=== PATIENT | male | born 1975 | race Caucasian/White ===

== ENCOUNTER 2017-07-18 22:18 | Inpatient (IN) | payer OTHER ==
[~2017-07-18] VITALS: Ht 170.2 cm; Wt 113.1 kg
[2017-07-18] MEDS ORDERED: HEPARIN 1000 UNITS/ML 10 ML INJ IV STA (22:22)
[2017-07-18] MEDS ORDERED: SOD CHLORIDE 0.9% 1,000 ML IV STA (22:22)
[2017-07-18] MEDS ORDERED: ASPIRIN 300 MG SUPP PR STA (22:22)
[2017-07-18] MEDS ORDERED: LORAZEPAM 2 MG INJ ONE (22:23)
[2017-07-18] MEDS ORDERED: ASPIRIN 300 MG SUPP PR ONE (22:23)
[2017-07-18] MEDS ORDERED: HEPARIN 5,000 UNIT/0.5 ML VIAL ONE (22:29)
[2017-07-18] MEDS ORDERED: PROPOFOL 20 ML ONE (22:29)
[2017-07-18] MEDS ORDERED: PROPOFOL 100 ML IV ONE (22:30)
[2017-07-18] MEDS ORDERED: LORAZEPAM 2 MG INJ IV ONE (22:30)
[2017-07-18] MEDS ORDERED: PROPOFOL 100 ML ONE (22:30)
[2017-07-18 22:38] LABS: ABNORMAL IP MESSAGE 1; HEMATOCRIT 47.8 % (42.0-52.0); HEMOGLOBIN 15.8 g/dl (14.0-18.0); MEAN CORPUSCULAR HEMOGLOBIN 30.5 pg (29.0-33.0); MEAN CORPUSCULAR HGB CONC 33.1 g/dl (32.0-37.0); MEAN CORPUSCULAR VOLUME 92.3 fl (82.0-101.0); MEAN PLATELET VOLUME 10.4 fl (7.4-10.4); PLATELET COUNT 293 10^3/UL (140-415); POSITIVE DIFF @See below; RED BLOOD COUNT 5.18 10^6/ul (4.70-6.10); RED CELL DISTRIBUTION WIDTH 12.6 % (11.5-14.5); WHITE BLOOD COUNT 11.9 10^3/ul (4.8-10.8)
[2017-07-18] MEDS ORDERED: LIDOCAINE 1% (MDV) 20 ML INJ ONE (22:52)
[2017-07-18] MEDS ORDERED: BIVALIRUDIN 250MG /NS 50 ML 50 ML IVPB ONE (22:52)
[2017-07-18] MEDS ORDERED: HEPARIN 1000 UNITS/ML 10 ML INJ ONE (22:52)
[2017-07-18] MEDS ORDERED: MIDAZOLAM 1 MG/ML 2 ML INJ ONE (22:53)
[2017-07-18] MEDS ORDERED: NITROGLYCERIN (IC) 100 MCG/ML INJ ONE (22:53)
[2017-07-18] MEDS ORDERED: VERAPAMIL 5 MG INJ ONE (22:53)
[2017-07-18] MEDS ORDERED: IODIXANOL LOCM 100 ML BTL ONE (22:53)
[2017-07-18] MEDS ORDERED: FENTAnyl 50 MCG/ML VIAL ONE (22:53)
[2017-07-18] MEDS ORDERED: IOHEXOL 350MG/ML 50 ML BTL ONE (22:53)
[2017-07-18 22:55] LABS: ALBUMIN 4.4 g/dl (3.3-4.9); ALBUMIN/GLOBULIN RATIO 1.51; BILIRUBIN,INDIRECT 0.1 mg/dl (0-1.1); BILIRUBIN,TOTAL 0.1 mg/dl (0.2-1.3); CALCIUM 8.5 mg/dl (8.4-10.2); CREATININE 1.26 mg/dl (0.61-1.24); POTASSIUM 3.1 mmol/L (3.5-5.1); TOTAL PROTEIN 7.3 g/dl (6.1-8.1)
[2017-07-18 23:06] LABS: TROPONIN-I 0.066 ng/ml (0.00-0.12)
--- NOTE | 2017-07-18 23:07 | CONS ---
Date/Time of Note Date/Time of Note DATE: 07/18/17 TIME: 23:04 Assessment/Plan Assessment/Plan Chief Complaint/Hosp Course 42 yo with witnessed vf arrest now with st elevations of lateral leads and reciprocal changes Problems: Additional Assessment/Plan STEMI lateral wall VF arrest due to stemi tobacco abuse hypertension Plan: Cath and possible PCI. Vent management Echo in am. Further orders post PCI D/w with geoint analyst. Consultation Date/Type/Reason Admit Date/Time 07/18/17 Date of Consultation: Jul 18, 2017 Reason for Consultation stemi Referring Provider: GUCCI CLEARY MD Hx of Present Illness 42 yo smoker with htn and prediabetes on no meds presents w 30 min chest pain, followed by sudden collapse. CPR started immediately, paramedics arrived about 10 min later, presenting rhythm VF, shocked x 3, received 300 iv amio. Pt intubated but responded to simple commands upon arrival prior to sedation. Subjective hx not possible: pt non-verbal Past Medical History Medical History: hypertension Social History Smoking Status: Current every day smoker Exam/Review of Systems Vital Signs Vitals Vital Signs Date Time Temp Pulse Resp B/P Pulse Ox O2 Delivery O2 Flow Rate FiO2 07/18/17 22:40 109 17 130/83 100 Mechanical Ventilator 07/18/17 22:30 100 Exam Constitutional: non-verbal (intubated) Psych: No anxiety Head: atraumatic, normocephalic ENMT: intubated Neck: No jvd Respiratory: clear to auscultation Cardiovascular: nl pulses, regular rate and rhythm, No murmurs/extra sounds Gastrointestinal: soft Musculoskeletal: nl extremities to inspection Results Result Diagram: 07/18/17223207/18/172232 Results 24 hrs Laboratory Tests Test 07/18/17 22:33 White Blood Count 11.9 H Red Blood Count 5.18 Hemoglobin 15.8 Hematocrit 47.8 Mean Corpuscular Volume 92.3 Mean Corpuscular Hemoglobin 30.5 Mean Corpuscular Hemoglobin Concent 33.1 Red Cell Distribution Width 12.6 Platelet Count 293 Mean Platelet Volume 10.4 Neutrophils % Lymphocytes % Monocytes % Eosinophils % Basophils % Nucleated Red Blood Cells % 0.0 Neutrophils # Lymphocytes # Monocytes # Eosinophils # Basophils # Nucleated Red Blood Cells # Sodium Level 143 Potassium Level 3.1 L Chloride Level 105 Carbon Dioxide Level 14 L Anion Gap 27 H Blood Urea Nitrogen 16 Creatinine 1.26 H Glucose Level 263 H Calcium Level 8.5 Total Bilirubin 0.1 L Direct Bilirubin 0.00 Indirect Bilirubin 0.1 Aspartate Amino Transf (AST/SGOT) 326 H Alanine Aminotransferase (ALT/SGPT) 473 H Alkaline Phosphatase 59 Troponin I Pending B-Type Natriuretic Peptide Pending Total Protein 7.3 Albumin 4.4 Globulin 2.90 Albumin/Globulin Ratio 1.51 Lipase [address] [place] Jul 18, 2017 23:07
[2017-07-18 23:09] LABS: INR 0.99; PROTIME 13.1 Sec (12.2-14.2)
--- NOTE | 2017-07-18 23:18 | ERD ---
ER Documentation Chief Complaint Chief Complaint sudden collaspe w/ cardiac arrest- witnessed, ROSC approx 15min w/ EMS HPI 42-year-old man brought in by EMS status post cardiac arrest with return of spontaneous circulation. He was at a banquet turner when his saw him collapse while sitting in a chair, he stopped breathing, and 911 was called immediately. Patient had told his 30 minutes earlier he was suffering from unusual left chest discomfort, and his suggested she call 911 for chest discomfort but he refused. states he had been dancing for most of the night prior to collapsing. Upon EMS arrival chest compressions were immediately started, patient had agonal breaths and was pulseless and initial rhythm was ventricular fibrillation. They administered 3 rounds of electrical defibrillation and also gave him 1 mg of epinephrine, with the third defibrillation attempt he regained spontaneous circulation and pulses and then they administered amiodarone IV 1. Patient was intubated at the scene and when when he regained pulses he was transported here immediately. Patient has a history of hypertension and prediabetes. Patient smokes. ROS All systems reviewed and are negative except as per history of present illness. Allergies Allergies: Coded Allergies: No Known Allergy (Unverified , 07/18/17) PMhx/Soc Obesity, hypertension, prediabetes Smoking Status: Current every day smoker FmHx Family History: No diabetes Physical Exam Vitals Vital Signs Date Time Temp Pulse Resp B/P Pulse Ox O2 Delivery O2 Flow Rate FiO2 07/18/17 22:40 109 17 130/83 100 Mechanical Ventilator 07/18/17 22:35 111 30 161/94 100 Mechanical Ventilator 07/18/17 22:30 109 31 95 100 07/18/17 22:25 117 22 140/96 99 07/18/17 22:20 119 27 140/96 100 Mechanical Ventilator Physical Exam GENERAL: Well-developed, well-nourished, well-hydrated, intubated, nonverbal, eyes closed, afebrile HEENT: Moist mucous membranes, pink conjunctiva, no cervical spine tenderness or step-off deformities, intubated NEURO: Pulses equal round reactive to light, he is responding to simple questioning, moving extremities CARDIAC: Tachycardic and regular no murmurs rubs or gallops LUNGS: Clear bilaterally no wheezing crackles or stridor ABDOMEN: Soft nontender, no guarding, no rigidity, no rebound, no psoas sign no obturator sign. SKIN: Warm and dry to touch, no abrasions, contusions, or hematomas, no lacerations, no ecchymosis, no target lesions, and without ulcers EXTREMITIES: No clubbing cyanosis or edema, calves are bilaterally symmetrical, no Homans sign, no popliteal cord sign. Distal pulses equal and bilateral PSYCH: Unable to assess Result Diagram: 07/18/17 2233 07/19/17 0142 Results 24 hrs Laboratory Tests Test 07/18/17 22:33 White Blood Count 11.910^3/ul Red Blood Count 5.1810^6/ul Hemoglobin 15.8g/dl Hematocrit 47.8% Mean Corpuscular Volume 92.3fl Mean Corpuscular Hemoglobin 30.5pg Mean Corpuscular Hemoglobin Concent 33.1g/dl Red Cell Distribution Width 12.6% Platelet Count 25926^3/UL Mean Platelet Volume 10.4fl Neutrophils % % Lymphocytes % % Monocytes % % Eosinophils % % Basophils % % Nucleated Red Blood Cells % 0.0/100WBC Neutrophils # 10^3/ul Lymphocytes # 10^3/ul Monocytes # 10^3/ul Eosinophils # 10^3/ul Basophils # 10^3/ul Nucleated Red Blood Cells # 10^3/ul Prothrombin Time 13.1Sec Prothrombin Time Ratio 1.0 INR International Normalized Ratio 0.99 Sodium Level 143mmol/L Potassium Level 3.1mmol/L Chloride Level 105mmol/L Carbon Dioxide Level 14mmol/L Anion Gap 27 Blood Urea Nitrogen 16mg/dl Creatinine 1.26mg/dl Glucose Level 263mg/dl Calcium Level 8.5mg/dl Total Bilirubin 0.1mg/dl Direct Bilirubin 0.00mg/dl Indirect Bilirubin 0.1mg/dl Aspartate Amino Transf (AST/SGOT) 326IU/L Alanine Aminotransferase (ALT/SGPT) 473IU/L Alkaline Phosphatase 59IU/L Troponin I 0.066ng/ml B-Type Natriuretic Peptide 35PG/ML Total Protein 7.3g/dl Albumin 4.4g/dl Globulin 2.90g/dl Albumin/Globulin Ratio 1.51 Lipase 265U/L Current Medications Medications (Trade) Dose Ordered Sig/Clarke Route PRN Reason Start Time Stop Time Status Last Admin Dose Admin Sodium Chloride (NS) 1,000 ml @ 1,000 mls/hr Q1H STAT IV 07/18/17 22:22 07/18/17 23:21 DC 07/18/17 22:41 Aspirin (Aspirin) 300 mg ONCE STAT [place] 07/18/17 22:22 07/18/17 22:28 DC 07/18/17 22:37 Heparin Sodium (Porcine) (Heparin (1000 Units/ml)) 5,000 unit ONCE STAT IV 07/18/17 22:22 07/18/17 22:28 DC 07/18/17 22:33 Lorazepam 2 mg 2 mg ONCE ONCE IV 07/18/17 22:30 07/18/17 22:31 DC 07/18/17 22:37 Propofol (Diprivan) 100 ml @ 0 mls/hr TITRATE ONCE IV 07/18/17 22:30 07/18/17 22:31 DC 07/18/17 22:37 Heparin Sodium (Porcine) 5000 unit 5,000 unit STK-MED ONCE .ROUTE 07/18/17 22:29 07/18/17 22:30 DC Propofol 20 ml @ ud STK-MED ONCE .ROUTE 07/18/17 22:29 07/18/17 22:30 DC Propofol (Diprivan) 100 ml @ ud STK-MED ONCE .ROUTE 07/18/17 22:30 07/18/17 22:31 DC Heparin Sodium (Porcine) (Heparin (1000 Units/ml)) 10,000 unit STK-MED ONCE .ROUTE 07/18/17 22:52 07/18/17 22:53 DC Lidocaine 20 ml 20 ml STK-MED ONCE .ROUTE 07/18/17 22:52 07/18/17 22:53 DC Bivalirudin (Angiomax) 50 ml @ ud STK-MED ONCE IVPB 07/18/17 22:52 07/18/17 22:53 DC Iohexol (Omnipaque 350mg/ ml) 50 ml STK-MED ONCE .ROUTE 07/18/17 22:53 07/18/17 22:54 DC Iodixanol 100 ml 100 ml STK-MED ONCE .ROUTE 07/18/17 22:53 07/18/17 22:54 DC Heparin Sodium/ Sodium Chloride (Heparin 1000 Units/NS (A-Line)) 1,500 ml @ ud STK-MED ONCE .ROUTE 07/18/17 22:53 07/18/17 22:54 DC Midazolam HCl (Versed) 2 mg STK-MED ONCE .ROUTE 07/18/17 22:53 07/18/17 22:54 DC Fentanyl (Sublimaze) 100 mcg STK-MED ONCE .ROUTE 07/18/17 22:53 07/18/17 22:54 DC Verapamil HCl (Verapamil) 5 mg STK-MED ONCE .ROUTE 07/18/17 22:53 07/18/17 22:54 DC Nitroglycerin (Nitroglycerin (Intracoronary)) 1,000 mcg STK-MED ONCE .ROUTE 07/18/17 22:53 07/18/17 22:54 DC Procedures/MDM IV line was established patient was placed on property assessment monitor rhythm strip revealed a sinus tachycardia at 120 bpm with upright P and T waves. Patient was afebrile I reviewed EMS EKG reveals large ST elevations in anterolateral leads concerning for acute VA. Code STEMI was called. I spoke immediately with Dr. Hernandez salesforce consultant consumer marketing specialist regarding the patient 's EKG findings, and she agreed to immediate PCI. Family members were at the bedside were notified, and agreed to this plan. EKG performed here in the ED, read by me reveals a sinus tachycardia at 120 bpm , normal axis, narrow QRS complex with 0.[address] elevations in precordial leads. One view chest x-ray performed, read by me the ET tube is in place above the pratibha, there is cardiomegaly, atelectatic changes bilaterally, no acute infiltrates, no pneumothorax. CBC was unremarkable, electrolytes revealed hypokalemia 3.1, liver function tests reveal transaminitis, troponin low at 0.07 and with his overall presentation and EKG findings I suspect he has an acute ST elevation myocardial infarction. Critical Care: Time: 30 minutes, this was time separate from other billable procedures. Treatments/Evaluations: Close monitoring and treatment of unstable vital signs, cardiorespiratory, and neurologic status, while maintaining tight balance of fluid, respiratory, and cardiac interventions. I administered 1 L normal saline intravenously, aspirin 300 mg per rectum, and heparin bolus 5000 units IV 1 for cardioprotective measures. Patient was also given lorazepam 2 mg IV 1 to help keep him sedated followed by propofol drip. Patient admitted to the intensive care unit. Departure Diagnosis: Primary Impression: ST elevation myocardial infarction (STEMI) Involved coronary artery: unspecified coronary artery Qualified Code: I21.3 - ST elevation myocardial infarction (STEMI), unspecified artery Additional Impressions: Cardiac arrest Signs of return of spontaneous circulation Condition: Critical GUCCI CLEARY MD Jul 18, 2017 23:18
--- NOTE | 2017-07-18 23:25 | RADRPT ---
PROCEDURE: XR Chest. CLINICAL INDICATION: Chest pain TECHNIQUE: Single frontal view of the chest was obtained COMPARISON: None FINDINGS: The tip of the endotracheal tube is approximately 4 cm above the pratibha. There is hypoinflation of t he lungs. This along with portable AP technique accentuates the size of the cardiac silhouette. Ther e is appearance of minimal enlargement of the cardiac silhouette. There is appearance of mild diffus e increased interstitial lung densities which could represent interstitial infiltrates or possibly e corrine. There is no pleural effusion or pneumothorax seen. ECG leads projected over the chest. IMPRESSION: Hypoinflation lungs. There is appearance of minimal enlargement of the cardiac silhouette. There is appearance of mild diffuse increased interstitial lung densities which could represent interstitial infiltrates or possibly edema. RPTAT: HJES .Ronn Araujo MD, MD Date Time Electronically viewed and signed by .Ronn Araujo MD, MD on 07/18/2017 23:25 .S/
[2017-07-19] VITALS (82 sets, daily range): BP systolic 82–134; BP diastolic 55–88; PULSE 77–180; RESP 0–38; Ht 170.2 cm; Wt 113.1 kg
[2017-07-19] MEDS ORDERED: ONDANSETRON 4 MG INJ IV PRN
[2017-07-19] MEDS ORDERED: ACETAMINOPHEN 650MG/20.3ML CUP PO PRN
[2017-07-19] MEDS ORDERED: NITROGLYCERIN (SL) 0.4 MG TAB SL PRN
[2017-07-19] MEDS ORDERED: IPRATROPIUM (HFA) 12.9 GM INHALER INH PRN
[2017-07-19] MEDS ORDERED: ALBUTEROL HFA 8 GM INHALER INH PRN
[2017-07-19] MEDS ORDERED: EPTIFIBATIDE 100 ML IV ONE (00:24)
[2017-07-19] MEDS ORDERED: TICAGRELOR 90 MG TABLET ONE ×2 (00:24→00:37)
[2017-07-19] MEDS ORDERED: EPTIFIBATIDE 20 ML ONE (00:24)
[2017-07-19] MEDS ORDERED: SOD CHLORIDE 0.9% 1,000 ML IV SCH (00:27)
[2017-07-19] MEDS ORDERED: EPTIFIBATIDE 100 ML IV SCH (00:27)
[2017-07-19] MEDS: METOPROLOL 25 MG TAB PO SCH ×3 (00:30→20:50)
--- NOTE | 2017-07-19 00:49 | OPR ---
Date/Time of Note Date/Time of Note DATE: 07/19/17 TIME: 00:36 Operative Report Procedure Date: Jul 19, 2017 Preoperative Diagnosis STEMI lateral wall Postoperative Diagnosis STEMI lateral wall, completely occluded LCX Operation/Procedure Performed coronary angiogram, left heart catheterization, percutaneous coronary intervention of left circumflex Surgeon see signature line Watch Crystal Molder Brad BURK Anesthesia Type: general (intubated, on propofol) Estimated Blood Loss: 100 - 150 ml's Transfusion none Specimen none Grafts/Implants Synergy 2.5x24 mm stent to mid LCX Complications none Pt Condition Post Procedure: guarded Disposition: other (ICU) Indications 42 yo who complained of 30 min of chest pain and then witnessed to have a cardiac arrest, resusciated from VF, EKG with ST elevations in lateral leads. Procedure Description Informed consent obtained from . Patient brought emergently to the filling station laborer , initially access obtained from the right radial artery, but catheters would not advance likely due to anatomy of his aorta and short ascending thoracic aorta. Therefore access gained in right common femoral artery, using fluoro for landmarks. Lidocaine used for anesthesia locally. Using modified seldinger technique, access gained in right CHORAL DIRECTOR. JR4 diagnostic and FL 4.5 guide catheter advanced over wire to asc thoracic aorta and engaged the RCA and LM respectively, contrast injected and images obtained in multiple views under cineangiography. Occluded LCX found to be the culprit, and procedure converted to a PCI. Heparin given and ACT found to be appropriately elevated. During the case, Integrilin was added due to burden of thrombus in the LCX. A Luge wire crossed the lesion, a 2.0x12 and 2.25x12 balloon inflated within the lesion. Good flow restored. Images performed in multiple projections including a wire out shot confirming that the stent was well opposed and no dissection present. Next a pigtail catheter advanced to the ascending thoracic aorta and crossed the aortic valve. Pressures measured and an LV gram was performed. Pigtail removed over wire. Angiography performed through the side arm of the femoral sheath demonstrating that it was positioned close to the inferior epigastric artery, and the sheath was sutured in place to be removed once ACT has dropped. Of note, patient did become hypotensive during the procedure and briefly received dopamine. At the end of the procedure, patient was normotensive. Findings: LM nl LAD mild luminal irregularities LCX 100% mid completely occluded. Lesion length 16 mm. ZOILA 0 before, ZOILA 3 after, not a type C lesion. LCX not a large vessel, but there is an extensive OM vessel after the lesion. RCA 60% proximal, 40% mid. Dominant vessel LVEF 60%, no obvious wall motion abnormalities on LV gram, LVEDP 17 [place] Jul 19, 2017 00:49
[2017-07-19] MEDS: PROPOFOL 100 ML IV SCH ×7 (01:21→19:52)
[2017-07-19 02:42] LABS: AADO2 Arterial 497.2 mmHg (7.0-24.0); Allen Test ACCEPTAB; Arterial Base Excess -11.2 mmol/L (-3.0-3); Arterial COHb 0.3 % (0.0-3.0); Arterial Fraction of Oxyhgb 98.1 % (93.0-99.0); Arterial HCO3 15.2 mmol/L (22.0-26.0); Arterial MetHb 0.2 % (0.0-1.5); Arterial Total Hemglobin 14.9 g/dl (12.0-18.0); Blood Gas Low PEEP Setting 0 cmH2O; MODE VENT - AC
[2017-07-19] MEDS: LORAZEPAM 2 MG INJ IV PRN ×3 (03:58→14:39)
[2017-07-19 05:01] LABS: AADO2 Arterial 468.1 mmHg (7.0-24.0); Arterial Base Excess -8.6 mmol/L (-3.0-3); Arterial COHb 0.3 % (0.0-3.0); Arterial Fraction of Oxyhgb 92.4 % (93.0-99.0); Arterial HCO3 16.4 mmol/L (22.0-26.0); Arterial MetHb 0.2 % (0.0-1.5); Arterial Total Hemglobin 14.7 g/dl (12.0-18.0); Blood Gas Low PEEP Setting 0 cmH2O; MODE VENT - AC
[2017-07-19] MEDS: PANTOPRAZOLE 40 MG INJ IV SCH ×2 (05:06→23:22)
[2017-07-19 05:37] LABS: BASOPHILS % 0.1 % (0.0-2.0); EOSINOPHILS % 0.1 % (0.0-7.0); HEMATOCRIT 40.9 % (42.0-52.0); HEMOGLOBIN 13.9 g/dl (14.0-18.0); LYMPHOCYTES # 1.2 10^3/ul (0.8-2.9); MEAN CORPUSCULAR HEMOGLOBIN 30.8 pg (29.0-33.0); MEAN CORPUSCULAR VOLUME 90.5 fl (82.0-101.0); MEAN PLATELET VOLUME 10.6 fl (7.4-10.4); MONOCYTE # 0.7 10^3/ul (0.3-0.9); NEUTROPHIL # 11.1 10^3/ul (1.6-7.5); NEUTROPHILS % 85.3 % (39.0-77.0); PLATELET COUNT 214 10^3/UL (140-415); RED BLOOD COUNT 4.52 10^6/ul (4.70-6.10); RED CELL DISTRIBUTION WIDTH 12.7 % (11.5-14.5)
[2017-07-19 05:53] LABS: ALBUMIN 3.1 g/dl (3.3-4.9); ALBUMIN/GLOBULIN RATIO 1.06; BILIRUBIN,INDIRECT 0.2 mg/dl (0-1.1); BILIRUBIN,TOTAL 0.2 mg/dl (0.2-1.3); CALCIUM 8.1 mg/dl (8.4-10.2); CREATININE 1.03 mg/dl (0.61-1.24); MAGNESIUM 1.8 mg/dl (1.7-2.5); POTASSIUM 4.2 mmol/L (3.5-5.1)
--- NOTE | 2017-07-19 06:07 | HP ---
Date/Time of Note Date/Time of Note DATE: 07/19/17 TIME: 05:57 Assessment/Plan VTE Prophylaxis VTE Prophylaxis Intervention: heparin Lines/Catheters IV Catheter Type (from Nrs): Peripheral IV Urinary Cath still in place: Yes Reason Cath still needed: terminal illness/intractable pain Assessment/Plan Assessment/Plan 1. Status post V-fib cardiac arrest, secondary to STEMI: with ROSC s/p shock 3 and Amiodarone. -Patient is status post PCI with stent to the left circumflex -Continue ICU monitoring -Continue current cardiac medications -Obtain 2D echo in a.m. -Follow-up cardiology recs -Pulmonary to manage vent 2. Hypoxic vent dependent respiratory failure -Continue vent support. Pulmonary to manage -Check ABG in a.m. 3. Elevated transaminases, likely secondary to shock liver -Check abdominal ultrasound -Blood pressure support as needed -Check a.m. lab -Consider GI/hepatology 4. Presumed acute kidney injury -Continue IV fluid and pressor support for now 5. Metabolic acidosis, secondary to #1 -Continue IV fluids, IV antibiotics, vent support, follow-up kidney function closely HPI/ROS Admit Date/Time Admit Date/Time 07/18/17 Hx of Present Illness This is a 42-year-old male with a history of hypertension, diabetes and smoking history who was brought to the ER after having had a cardiac arrest. Patient was in V. fib cardiac arrest and was shocked 3. When he arrived to the ER, a code STEMI was activated and patient was emergently taken to the Wafer Cutter and is now status post PCI with stents to the left circumflex. Reportedly, patient was following simple commands in the ER. Currently he is intubated and appears somehow agitated. ROS Psychological: No anxiety PMH/Family/Social Past Medical History Medical History: hypertension Social History Smoking Status: Current every day smoker Exam/Review of Systems Vital Signs Vitals Vital Signs Date Time Temp Pulse Resp B/P Pulse Ox O2 Delivery O2 Flow Rate FiO2 07/19/17 03:09 80 07/19/17 02:45 85 0 91/61 100 Mechanical Ventilator 07/19/17 01:30 97.9 Intake and Output 07/18/17 07/18/17 07/19/17 14:59 22:59 06:59 Intake Total 324.05 ml Output Total 1057 ml Balance -732.95 ml Exam Constitutional: other (Intubated and sedated, looks uncomfortable in event) Head: atraumatic, normocephalic Respiratory: diminished breath sounds Cardiovascular: nl pulses, regular rate and rhythm Gastrointestinal: soft Extremities: normal pulses Labs Result Diagram: 07/19/1742907/19/17 043 Medications Medications Current Medications Ondansetron HCl (Zofran Inj) 4 mg Q6H PRN IV NAUSEA AND/OR VOMITING; Start at 00:00 Nitroglycerin (Nitroglycerin (Sl Tab) 0.4 Mg) 1 tab Q5M PRN SL CHEST PAIN; Start 07/19/17 at 00:00 Acetaminophen (Tylenol Liquid) 650 mg Q6H PRN PO PAIN LEVEL 1-3 OR FEVER; Start 07/19/17 at 00:00 Morphine Sulfate (morphine) 2 mg Q4H PRN IV PAIN LEVEL 7-10; Start 07/19/17 at 00:00 Lorazepam (Ativan) 1 mg Q2H PRN IV ANXIETY Last administered on 07/19/17 03: 58; Admin Dose 1 MG; Start 07/19/17 at 00:00 Pantoprazole 40 mg 40 mg DAILY@06 IV Last administered on 07/19/17 05:06; Admin Dose 40 MG; Start 07/19/17 at 06:00 Levofloxacin/ Dextrose (Levaquin 500mg/ D5W 100 ml (Pmx)) 100 ml @ 100 mls/hr DAILY IVPB ; Start 07/19/17 at 09:00 Aspirin (Halfprin) 81 mg DAILY PO ; Start 07/19/17 at 09:00 Ticagrelor 90 mg 90 mg BID PO ; Start 07/19/17 at 09:00 Eptifibatide (Integrilin) 100 ml @ 6.6 mls/hr [id number] IV Last administered on 07/19/17 01:20; Admin Dose 6.6 MLS/HR; Start 07/19/17 at 00:27; Stop at 12:26 Metoprolol Tartrate (Lopressor) 25 mg BID PO ; Start 07/19/17 at 00:30 Atorvastatin Calcium 80 mg 80 mg DAILY@21 PO ; Start 07/19/17 at 21:00 Sodium Chloride (NS) 1,000 ml @ 75 mls/hr [id number] IV Last administered on t 01:37; Admin Dose 75 MLS/HR; Start 07/19/17 at 00:27; Stop 07/19/17 at 13:46 SAVANAH HOANG MD Jul 19, 2017 06:07
[2017-07-19 06:23] LABS: THYROID STIMULATING HORMONE 0.502 MIU/L (0.465-4.680)
[2017-07-19 06:56] LABS: CHOL/HDL RATIO 8.3 RATIO
[2017-07-19] MEDS ORDERED: DOPamine-D5W 1.6 MG/ML 250 ML ONE (07:00)
[2017-07-19 07:16] LABS: TROPONIN-I 72.9 ng/ml (0.00-0.12)
[2017-07-19 08:05] LABS: BARBITURATES Negative (NEGATIVE); BENZODIAZEPINES Negative (NEGATIVE); CANNABINOIDS Negative (NEGATIVE); COCAINE Negative (NEGATIVE); OPIATES Negative (NEGATIVE)
[2017-07-19] MEDS: LEVOFLOXACIN 500MG/D5W (PMX) 100 ML IVPB SCH (08:22)
[2017-07-19] MEDS: ASPIRIN (EC) 81 MG TAB PO SCH (08:23)
[2017-07-19] MEDS: TICAGRELOR 90 MG TABLET PO SCH ×2 (08:24→20:54)
[2017-07-19] MEDS ORDERED: ASPIRIN (EC) 81 MG TAB PO SCH (09:00)
--- NOTE | 2017-07-19 09:18 | RADRPT ---
PROCEDURE: US Abdomen. CLINICAL INDICATION: elevated LFTs TECHNIQUE: Multiple real-time images were acquired of the patient's abdomen and retroperitoneum ut ilizing a high resolution transducer. COMPARISON: None FINDINGS: The liver demonstrates increased echogenicity. The liver is normal in size and no focal solid lesio ns are seen. The portal vein is patent with normal direction of flow. No intrahepatic biliary dila tation is seen. The liver measures 16.3 cm in length. No gallstones are identified within the gallbladder. There is no pericholecystic fluid or gallbladd er wall thickening. The common bile duct measures 5 mm in maximal dimension. The visualized portions of the pancreas are unremarkable. The tail of the pancreas is not seen. Th e pancreas was not well seen due to overlying bowel gas. The spleen is normal in size. The spleen measures 11.5 cm in length. No free fluid is identified. The kidneys are normal in size, and demonstrate normal echogenicity and cortical thickness. The rig ht kidney measures 11.4 cm. The left kidney measures 12.4 cm. There is no evidence of hydronephros is. There are no kidney stones. The proximal aorta measures 2.3 cm in transverse dimension. IMPRESSION: Mild fatty infiltration of the liver. RPTAT: AA .Hiro Campbell MD, Date Time Electronically viewed and signed by .Hiro Campbell MD, MD on 07/19/2017 09:18 .S/
[2017-07-19] MEDS ORDERED: LEVALBUTEROL (HFA) 15 GM INHALER INH PRN (09:30)
[2017-07-19 09:36] LABS: ADD UMIC YES; UR ASCORBIC ACID NEGATIVE (NEGATIVE); UR BACTERIA FEW /HPF (NONE SEEN); UR BILIRUBIN (Dip) NEGATIVE (NEGATIVE); UR BLOOD (Dip) 2+ mg/dL (NEGATIVE); UR CLARITY CLEAR (CLEAR); UR COLOR YELLOW (YELLOW); UR GLUCOSE (Dip) NEGATIVE (NEGATIVE); UR KETONES (Dip) NEGATIVE (NEGATIVE); UR LEUKOCYTE ESTERASE (Dip) NEGATIVE Leu/ul (NEGATIVE); UR MUCUS MANY /HPF (NONE SEEN); UR NITRITE (Dip) NEGATIVE (NEGATIVE); UR RBC 13 /HPF (0-5); UR SPECIFIC GRAVITY (Dip) > 1.060 (1.003-1.030); UR TOTAL PROTEIN (Dip) 2+ mg/dl (NEGATIVE); UR UROBILINOGEN (Dip) NEGATIVE (NEGATIVE)
[2017-07-19 09:41] LABS: AADO2 Arterial 377.5 mmHg (7.0-24.0); Arterial Base Excess -8.2 mmol/L (-3.0-3); Arterial COHb 0.3 % (0.0-3.0); Arterial Fraction of Oxyhgb 98.1 % (93.0-99.0); Arterial HCO3 16.6 mmol/L (22.0-26.0); Arterial MetHb 0.3 % (0.0-1.5); Arterial Total Hemglobin 13.7 g/dl (12.0-18.0); MODE VENT - AC
--- NOTE | 2017-07-19 09:48 | PN ---
Date/Time of Note Date/Time of Note DATE: 07/19/17 TIME: 09:44 Assessment/Plan VTE Prophylaxis VTE Prophylaxis Intervention: SCD's Lines/Catheters IV Catheter Type (from Nrs): Peripheral IV Urinary Cath still in place: Yes Reason Cath still needed: other (indicate) (intubated) Assessment/Plan Chief Complaint/Hosp Course 42 yo with witnessed vf arrest now with st elevation mi of lateral wall, post pci and stent to lcx. Problems: Assessment/Plan VF arrest due to stemi lateral wall STEMI lateral wall CAD vent dependent resp failure Recc: On asa and brilinta, metoprolol, atorvastatin, continue integrillin drip Remove femoral sheath today Echo pending Stop fluids now, lasix per pulmonary Hopeful extubation soon Subjective 24 Hr Interval Summary Free Text/Dictation Pt still requiring 80% fio2. Troponin elevated as expected. Short runs nsvt overnight. Subjective hx not possible: pt non-verbal Exam/Review of Systems Vital Signs Vitals Vital Signs Date Time Temp Pulse Resp B/P Pulse Ox O2 Delivery O2 Flow Rate FiO2 07/19/17 08:00 88 07/19/17 06:01 27 100 100 07/19/17 06:00 94/73 Mechanical Ventilator 07/19/17 04:00 99.1 Intake and Output 07/18/17 07/18/17 07/19/17 15:00 23:00 07:00 Intake Total 667.85 ml Output Total 1163 ml Balance -495.15 ml Exam Constitutional: non-verbal Head: atraumatic, normocephalic ENMT: intubated Neck: No bruits Respiratory: normal air movement, other (few coarse sounds) Cardiovascular: regular rate and rhythm, No murmurs/extra sounds Gastrointestinal: nl liver, spleen, non-tender, soft Musculoskeletal: nl extremities to inspection Extremities: normal pulses (right femoral sheath intact, no hematoma or bruit. Right radial artery site well healed.) Neurological: other (sedated) Skin: nl turgor, No rash or lesions Results Result Diagram: 07/19/1742907/19/17 0430 Results 24 hrs Laboratory Tests Test 07/18/17 22:33 07/19/17 01:41 07/19/17 01:42 07/19/17 02:25 White Blood Count 11.9 H Red Blood Count 5.18 Hemoglobin 15.8 Hematocrit 47.8 Mean Corpuscular Volume 92.3 Mean Corpuscular Hemoglobin 30.5 Mean Corpuscular Hemoglobin Concent 33.1 Red Cell Distribution Width 12.6 Platelet Count 293 Mean Platelet Volume 10.4 Neutrophils % Lymphocytes % Monocytes % Eosinophils % Basophils % Nucleated Red Blood Cells % 0.0 Neutrophils # Lymphocytes # Monocytes # Eosinophils # Basophils # Nucleated Red Blood Cells # Prothrombin Time 13.1 Prothrombin Time Ratio 1.0 INR International Normalized Ratio 0.99 Sodium Level 143 Potassium Level 3.1 L 4.3 Chloride Level 105 Carbon Dioxide Level 14 L Anion Gap 27 H Blood Urea Nitrogen 16 Creatinine 1.26 H Glucose Level 263 H Calcium Level 8.5 Total Bilirubin 0.1 L Direct Bilirubin 0.00 Indirect Bilirubin 0.1 Aspartate Amino Transf (AST/SGOT) 326 H Alanine Aminotransferase (ALT/SGPT) 473 H Alkaline Phosphatase 59 Troponin I 0.066 B-Type Natriuretic Peptide 35 Total Protein 7.3 Albumin 4.4 Globulin 2.90 Albumin/Globulin Ratio 1.51 Lipase 265 Magnesium Level 2.0 Blood Gas Specimen Source Blood arterial Arterial Blood Date Drawn 07/19/2017 2:31:05 AM Arterial Blood pH (Temp corrected) 7.241 *L Arterial Blood pCO2 (Temp correct) 36.3 Arterial Blood pO2 (Temp corrected) 179.5 H Arterial Blood HCO3 15.2 L Arterial Blood Base Excess -11.2 L Arterial Blood Oxygen Saturation 98.6 H Joao Test ACCEPTAB Arterial Blood Gas Puncture Site Right Radial Arterial Blood Carboxyhemoglobin 0.3 Arterial Blood Methemoglobin 0.2 Blood Gas A-a O2 Differential 497.2 H Oxyhemoglobin Percent 98.1 Total Hemoglobin 14.9 Blood Gas Temperature 37.0 Blood Gas Respiration Rate 16.0 Blood Gas Actual Respiration Rate 23 Blood Gas Modality VENT - AC FiO2 100.0 Blood Gas Tidal Volume 500.0 Blood Gas Low PEEP Setting 0 Blood Gas Inspiratory Pressure 21.0 Blood Gas Critical Value Read Back REYNALDO Shrestha REdi Blood Gas Notified Whom TELLO BENITO Blood Gas Notified Time 07/19/2017 2:41:39 AM Test 07/19/17 04:30 07/19/17 05:00 07/19/17 06:00 07/19/17 09:00 White Blood Count 13.0 H Red Blood Count 4.52 L Hemoglobin 13.9 L Hematocrit 40.9 L Mean Corpuscular Volume 90.5 Mean Corpuscular Hemoglobin 30.8 Mean Corpuscular Hemoglobin Concent 34.0 Red Cell Distribution Width 12.7 Platelet Count 214 # Mean Platelet Volume 10.6 H Neutrophils % 85.3 H Lymphocytes % 9.0 L Monocytes % 5.0 Eosinophils % 0.1 Basophils % 0.1 Nucleated Red Blood Cells % 0.0 Neutrophils # 11.1 H Lymphocytes # 1.2 Monocytes # 0.7 Eosinophils # 0.0 Basophils # 0.0 Nucleated Red Blood Cells # 0.0 Sodium Level 144 Potassium Level 4.2 Chloride Level 113 H Carbon Dioxide Level 21 Anion Gap 14 # Blood Urea Nitrogen 19 Creatinine 1.03 Glucose Level 128 # Hemoglobin A1c 5.5 Calcium Level 8.1 L Magnesium Level 1.8 Total Bilirubin 0.2 Direct Bilirubin 0.00 Indirect Bilirubin 0.2 Aspartate Amino Transf (AST/SGOT) 489 H Alanine Aminotransferase (ALT/SGPT) 472 H Alkaline Phosphatase 42 Creatine Kinase 2803 H Creatine Kinase Index 5.5 Creatinine Kinase MB (Mass) 154.00 H Troponin I 72.900 *H Total Protein 6.0 #L Albumin 3.1 #L Globulin 2.90 Albumin/Globulin Ratio 1.06 Triglycerides Level 382 H Cholesterol Level 200 LDL Cholesterol, Calculated 100 HDL Cholesterol 24 L Cholesterol/HDL Ratio 8.3 Thyroid Stimulating Hormone (TSH) 0.502 Blood Gas Specimen Source Blood arterial Blood arterial Arterial Blood Date Drawn 07/19/2017 4:51:04 AM 07/19/2017 9:30:58 AM Arterial Blood pH (Temp corrected) 7.314 L 7.328 L Arterial Blood pCO2 (Temp correct) 33.1 L 32.4 L Arterial Blood pO2 (Temp corrected) 67.6 L 158.9 H Arterial Blood HCO3 16.4 L 16.6 L Arterial Blood Base Excess -8.6 L -8.2 L Arterial Blood Oxygen Saturation 92.9 L 98.7 H Joao Test N/A N/A Arterial Blood Gas Puncture Site A-Line A-Line Arterial Blood Carboxyhemoglobin 0.3 0.3 Arterial Blood Methemoglobin 0.2 0.3 Blood Gas A-a O2 Differential 468.1 H 377.5 H Oxyhemoglobin Percent 92.4 L 98.1 Total Hemoglobin 14.7 13.7 Blood Gas Temperature 37.0 37.0 Blood Gas Respiration Rate 16.0 16.0 Blood Gas Actual Respiration Rate 29 25 Blood Gas Modality VENT - AC VENT - AC FiO2 80.0 80.0 Blood Gas Tidal Volume 500.0 500.0 Blood Gas Low PEEP Setting 0 5.0 Blood Gas Notified Whom Jono SOLIS Blood Gas Notified Time 07/19/2017 5:01:42 AM 07/19/2017 9:41:37 AM Urine Color YELLOW Urine Clarity CLEAR Urine pH 5.0 Urine Specific [place] > 1.060 H Urine Ketones NEGATIVE Urine Nitrite NEGATIVE Urine Bilirubin NEGATIVE Urine Urobilinogen NEGATIVE Urine Leukocyte Esterase NEGATIVE Urine Microscopic RBC 13 H Urine Microscopic WBC 2 Urine Bacteria FEW A Urine Mucus MANY A Urine Hemoglobin 2+ H Urine Glucose NEGATIVE Urine Total Protein 2+ H Urine Opiates Screen Negative Urine Barbiturates Negative Urine Amphetamines Screen Negative Urine Benzodiazepines Screen Negative Urine Cocaine Screen Negative Urine Cannabinoids Negative Medications Medications Current Medications Ondansetron HCl (Zofran Inj) 4 mg Q6H PRN IV NAUSEA AND/OR VOMITING; Start at 00:00 Nitroglycerin (Nitroglycerin (Sl Tab) 0.4 Mg) 1 tab Q5M PRN SL CHEST PAIN; Start 07/19/17 at 00:00 Acetaminophen (Tylenol Liquid) 650 mg Q6H PRN PO PAIN LEVEL 1-3 OR FEVER; Start 07/19/17 at 00:00 Morphine Sulfate (morphine) 2 mg Q4H PRN IV PAIN LEVEL 7-10; Start 07/19/17 at 00:00 Lorazepam (Ativan) 1 mg Q2H PRN IV ANXIETY Last administered on 07/19/17 03: 58; Admin Dose 1 MG; Start 07/19/17 at 00:00 Pantoprazole 40 mg 40 mg DAILY@06 IV Last administered on 07/19/17 05:06; Admin Dose 40 MG; Start 07/19/17 at 06:00 Levofloxacin/ Dextrose (Levaquin 500mg/ D5W 100 ml (Pmx)) 100 ml @ 100 mls/hr DAILY IVPB Last administered on 07/19/17 08:22; Admin Dose 100 MLS/HR; Start 07/19/17 at 09:00 Aspirin (Halfprin) 81 mg DAILY PO Last administered on 07/19/17 08:23; Admin Dose 81 MG; Start 07/19/17 at 09:00 Ticagrelor 90 mg 90 mg BID PO Last administered on 07/19/17 08:24; Admin Dose 90 MG; Start 07/19/17 at 09:00 Eptifibatide (Integrilin) 100 ml @ 6.6 mls/hr [id number] IV Last administered on 07/19/17 01:20; Admin Dose 6.6 MLS/HR; Start 07/19/17 at 00:27; Stop at 12:26 Metoprolol Tartrate (Lopressor) 25 mg BID PO Last administered on 07/19/17 08 :23; Admin Dose 25 MG; Start 07/19/17 at 00:30 Atorvastatin Calcium 80 mg 80 mg DAILY@21 PO ; Start 07/19/17 at 21:00 Sodium Chloride (NS) 1,000 ml @ 75 mls/hr [id number] IV Last administered on 01:37; Admin Dose 75 MLS/HR; Start 07/19/17 at 00:27; Stop 07/19/17 at 13:46 [place] Jul 19, 2017 09:48
[2017-07-19] MEDS: morphine 2 MG INJ IV PRN ×2 (10:58→14:54)
--- NOTE | 2017-07-19 11:40 | CONS ---
DATE OF ADMISSION: 07/18/2017 DATE OF CONSULTATION: TYPE OF CONSULTATION: Pulmonary. REASON FOR CONSULT: Cardiac arrest, respiratory failure. Thank you, Dr. Sorenson, for this consultation. HISTORY OF PRESENT ILLNESS: This is a 42-year-old gentleman, history of positive tobacco use, colla psed at a social function, found to be unresponsive. Paramedics arrived. The patient was in VF rec eived defibrillation and amiodarone with return of circulation, brought here, taken to cardiac pit laborer emergently found to have occluded left circumflex, underwent a percutaneous stent placement with good post-procedure flow. The patient remained on mechanical ventilation overnight. This morning continues Brilinta, mechanical ventilation, appears comfortable at rest, , follows commands off sedation. PAST MEDICAL HISTORY: As above. MEDICATIONS: Per chart. ALLERGIES: NONE. SOCIAL HISTORY: Positive tobacco and alcohol history. FAMILY HISTORY: Unable to obtain. PHYSICAL EXAMINATION: GENERAL: Morbidly obese gentleman, orally intubated, appears comfortable at rest, no acute distress . VITAL SIGNS: Currently afebrile, pulse is 100, blood pressure 94/70, O2 saturation 96%, FIO2 of 60% , orally intubated. NECK: Supple, no JVD or lymphadenopathy. CARDIAC: S1, S2, no added sounds or murmurs. CHEST: Diminished air entry bilaterally but no rales or wheezes. ABDOMEN: Obese, soft, nontender, no guarding, no rebound. EXTREMITIES: No cyanosis, clubbing or edema. NEUROLOGIC: Grossly intact. No focal deficits. LABORATORY DATA: White count 13.0, hemoglobin 13.9, platelets 214. Chemistry: BUN 19, creatinine 1.03. Troponin elevated at 72.9. INR was 0.99. Urinalysis negative for UTI. Chest x-ray: Mild p ulmonary edema. IMPRESSION AND PLAN: 1. Cardiopulmonary arrest. 2. Ventricular fibrillation. 3. Status post stent placement to occluded circumflex. PLAN: 1. Continue mechanical ventilation today. 2. Monitor hemodynamic status. 3. Complete Brilinta per protocol. 4. Statin, aspirin and beta tash as tolerated. 5. I anticipate extubation tomorrow. Dictated By: JUAN CARLOS DAMON/CAROLIN Conf#: [id number] DID#: [id number] CC: SAVANAH SORENSON MD;*EndCC*
[2017-07-19] MEDS ORDERED: MAGNESIUM SULFATE 2 GM/50 ML 50 ML IVPB ONE (12:00)
[2017-07-19 13:48] LABS: ADD UMIC YES; UR ASCORBIC ACID 20 mg/dL (NEGATIVE); UR BACTERIA FEW /HPF (NONE SEEN); UR BILIRUBIN (Dip) NEGATIVE (NEGATIVE); UR BLOOD (Dip) NEGATIVE (NEGATIVE); UR CLARITY TURBID (CLEAR); UR COLOR YELLOW (YELLOW); UR GLUCOSE (Dip) NEGATIVE (NEGATIVE); UR KETONES (Dip) NEGATIVE (NEGATIVE); UR LEUKOCYTE ESTERASE (Dip) NEGATIVE Leu/ul (NEGATIVE); UR MUCUS FEW /HPF (NONE SEEN); UR NITRITE (Dip) NEGATIVE (NEGATIVE); UR RBC 69 /HPF (0-5); UR SPECIFIC GRAVITY (Dip) 1.057 (1.003-1.030); UR TOTAL PROTEIN (Dip) 2+ mg/dl (NEGATIVE); UR UROBILINOGEN (Dip) NEGATIVE (NEGATIVE)
[2017-07-19 13:51] LABS: UR URIC ACID CRYSTAL MODERATE /HPF (NONE SEEN)
[2017-07-19] MEDS ORDERED: FUROSEMIDE 20 MG INJ IV ONE (14:00)
--- NOTE | 2017-07-19 14:02 | PN ---
Date/Time of Note Date/Time of Note DATE: 07/19/17 TIME: 13:48 Assessment/Plan VTE Prophylaxis VTE Prophylaxis Intervention: SCD's Lines/Catheters IV [facility]from [facility] [place] [facility] Urinary Cath still in place: Yes Reason Cath still needed: other (indicate) Assessment/Plan Assessment/Plan 1. Status post V-fib cardiac arrest, secondary to STEMI: with ROSC s/p shock 3 and Amiodarone. 2. Hypoxic vent dependent respiratory failure 3. Elevated transaminases, likely secondary to shock liver superimposed on chronic fatty liver 4. Acute kidney injury: resolved 5. Metabolic acidosis, secondary to #1: improved 6. Morbid Obesity 7. Possible UTI: continue abx for now, f/u cultures. PLAN: Cont vent mgt and weaning Lasix x1 for pul edema Trend labs review diet tomorrow re: intubaton status Continue all other ICU supportive care. Subjective 24 Hr Interval Summary Free Text/Dictation Patient seen and examined. Intubated and sedated for comfort, but no pressor support. plans for CPAP trials tomorrow Exam/Review of Systems Vital Signs Vitals Vital Signs Date Time Temp Pulse Resp B/P Pulse Ox O2 Delivery O2 Flow Rate FiO2 07/19/17 13:30 84 26 96/70 97 Mechanical Ventilator 07/19/17 12:00 100.0 07/19/17 11:00 50 Intake and Output 07/18/17 07/18/17 07/19/17 14:59 22:59 06:59 Intake Total 553.25 ml Output Total 1124 ml Balance -570.75 ml Exam Constitutional: obese, other (arousable, requiring restraints) Head: atraumatic, normocephalic Eyes: PERRL ENMT: intubated Respiratory: clear to auscultation Cardiovascular: regular rate and rhythm Gastrointestinal: bowel sounds (NGT but no feeds yet), other (obese), soft Extremities: No edema Results Result Diagram: 07/19/17 0430 07/19/17429 Results 24 hrs Laboratory Tests Test 07/18/17 22:33 07/19/17 01:41 07/19/17 01:42 07/19/17 02:25 White Blood Count 11.9 H Red Blood Count 5.18 Hemoglobin 15.8 Hematocrit 47.8 Mean Corpuscular Volume 92.3 Mean Corpuscular Hemoglobin 30.5 Mean Corpuscular Hemoglobin Concent 33.1 Red Cell Distribution Width 12.6 Platelet Count 293 Mean Platelet Volume 10.4 Neutrophils % Lymphocytes % Monocytes % Eosinophils % Basophils % Nucleated Red Blood Cells % 0.0 Neutrophils # Lymphocytes # Monocytes # Eosinophils # Basophils # Nucleated Red Blood Cells # Prothrombin Time 13.1 Prothrombin Time Ratio 1.0 INR International Normalized Ratio 0.99 Sodium Level 143 Potassium Level 3.1 L 4.3 Chloride Level 105 Carbon Dioxide Level 14 L Anion Gap 27 H Blood Urea Nitrogen 16 Creatinine 1.26 H Glucose Level 263 H Calcium Level 8.5 Total Bilirubin 0.1 L Direct Bilirubin 0.00 Indirect Bilirubin 0.1 Aspartate Amino Transf (AST/SGOT) 326 H Alanine Aminotransferase (ALT/SGPT) 473 H Alkaline Phosphatase 59 Troponin I 0.066 B-Type Natriuretic Peptide 35 Total Protein 7.3 Albumin 4.4 Globulin 2.90 Albumin/Globulin Ratio 1.51 Lipase 265 Magnesium Level 2.0 Blood Gas Specimen Source Blood arterial Arterial Blood Date Drawn 07/19/2017 2:31:05 AM Arterial Blood pH (Temp corrected) 7.241 *L Arterial Blood pCO2 (Temp correct) 36.3 Arterial Blood pO2 (Temp corrected) 179.5 H Arterial Blood HCO3 15.2 L Arterial Blood Base Excess -11.2 L Arterial Blood Oxygen Saturation 98.6 H Joao Test ACCEPTAB Arterial Blood Gas Puncture Site Right Radial Arterial Blood Carboxyhemoglobin 0.3 Arterial Blood Methemoglobin 0.2 Blood Gas A-a O2 Differential 497.2 H Oxyhemoglobin Percent 98.1 Total Hemoglobin 14.9 Blood Gas Temperature 37.0 Blood Gas Respiration Rate 16.0 Blood Gas Actual Respiration Rate 23 Blood Gas Modality VENT - AC FiO2 100.0 Blood Gas Tidal Volume 500.0 Blood Gas Low PEEP Setting 0 Blood Gas Inspiratory Pressure 21.0 Blood Gas Critical Value Read Back REYNALDO Shrestha R.N. Blood Gas Notified Whom TELLO BENITO Blood Gas Notified Time 07/19/2017 2:41:39 AM Test 07/19/17 04:30 07/19/17 05:00 07/19/17 06:00 07/19/17 09:00 White Blood Count 13.0 H Red Blood Count 4.52 L Hemoglobin 13.9 L Hematocrit 40.9 L Mean Corpuscular Volume 90.5 Mean Corpuscular Hemoglobin 30.8 Mean Corpuscular Hemoglobin Concent 34.0 Red Cell Distribution Width 12.7 Platelet Count 214 # Mean Platelet Volume 10.6 H Neutrophils % 85.3 H Lymphocytes % 9.0 L Monocytes % 5.0 Eosinophils % 0.1 Basophils % 0.1 Nucleated Red Blood Cells % 0.0 Neutrophils # 11.1 H Lymphocytes # 1.2 Monocytes # 0.7 Eosinophils # 0.0 Basophils # 0.0 Nucleated Red Blood Cells # 0.0 Sodium Level 144 Potassium Level 4.2 Chloride Level 113 H Carbon Dioxide Level 21 Anion Gap 14 # Blood Urea Nitrogen 19 Creatinine 1.03 Glucose Level 128 # Hemoglobin A1c 5.5 Calcium Level 8.1 L Magnesium Level 1.8 Total Bilirubin 0.2 Direct Bilirubin 0.00 Indirect Bilirubin 0.2 Aspartate Amino Transf (AST/SGOT) 489 H Alanine Aminotransferase (ALT/SGPT) 472 H Alkaline Phosphatase 42 Creatine Kinase 2803 H Creatine Kinase Index 5.5 Creatinine Kinase MB (Mass) 154.00 H Troponin I 72.900 *H Total Protein 6.0 #L Albumin 3.1 #L Globulin 2.90 Albumin/Globulin Ratio 1.06 Triglycerides Level 382 H Cholesterol Level 200 LDL Cholesterol, Calculated 100 HDL Cholesterol 24 L Cholesterol/HDL Ratio 8.3 Thyroid Stimulating Hormone (TSH) 0.502 Blood Gas Specimen Source Blood arterial Blood arterial Arterial Blood Date Drawn 07/19/2017 4:51:04 AM 07/19/2017 9:30:58 AM Arterial Blood pH (Temp corrected) 7.314 L 7.328 L Arterial Blood pCO2 (Temp correct) 33.1 L 32.4 L Arterial Blood pO2 (Temp corrected) 67.6 L 158.9 H Arterial Blood HCO3 16.4 L 16.6 L Arterial Blood Base Excess -8.6 L -8.2 L Arterial Blood Oxygen Saturation 92.9 L 98.7 H Joao Test N/A N/A Arterial Blood Gas Puncture Site A-Line A-Line Arterial Blood Carboxyhemoglobin 0.3 0.3 Arterial Blood Methemoglobin 0.2 0.3 Blood Gas A-a O2 Differential 468.1 H 377.5 H Oxyhemoglobin Percent 92.4 L 98.1 Total Hemoglobin 14.7 13.7 Blood Gas Temperature 37.0 37.0 Blood Gas Respiration Rate 16.0 16.0 Blood Gas Actual Respiration Rate 29 25 Blood Gas Modality VENT - AC VENT - AC FiO2 80.0 80.0 Blood Gas Tidal Volume 500.0 500.0 Blood Gas Low PEEP Setting 0 5.0 Blood Gas Notified Whom Jono SOLIS Blood Gas Notified Time 07/19/2017 5:01:42 AM 07/19/2017 9:41:37 AM Urine Color YELLOW Urine Clarity CLEAR Urine pH 5.0 Urine Specific [place] > 1.060 H Urine Ketones NEGATIVE Urine Nitrite NEGATIVE Urine Bilirubin NEGATIVE Urine Urobilinogen NEGATIVE Urine Leukocyte Esterase NEGATIVE Urine Microscopic RBC 13 H Urine Microscopic WBC 2 Urine Bacteria FEW A Urine Mucus MANY A Urine Hemoglobin 2+ H Urine Glucose NEGATIVE Urine Total Protein 2+ H Urine Opiates Screen Negative Urine Barbiturates Negative Urine Amphetamines Screen Negative Urine Benzodiazepines Screen Negative Urine Cocaine Screen Negative Urine Cannabinoids Negative Medications Medications Current Medications Ondansetron HCl (Zofran Inj) 4 mg Q6H PRN IV NAUSEA AND/OR VOMITING; Start at 00:00 Nitroglycerin (Nitroglycerin (Sl Tab) 0.4 Mg) 1 tab Q5M PRN SL CHEST PAIN; Start 07/19/17 at 00:00 Acetaminophen (Tylenol Liquid) 650 mg Q6H PRN PO PAIN LEVEL 1-3 OR FEVER; Start 07/19/17 at 00:00 Morphine Sulfate (morphine) 2 mg Q4H PRN IV PAIN LEVEL 7-10 Last administered on 07/19/17 10:58; Admin Dose 2 MG; Start 07/19/17 at 00:00 Lorazepam (Ativan) 1 mg Q2H PRN IV ANXIETY Last administered on 07/19/17 11: 56; Admin Dose 1 MG; Start 07/19/17 at 00:00 Pantoprazole 40 mg 40 mg DAILY@06 IV Last administered on 07/19/17 05:06; Admin Dose 40 MG; Start 07/19/17 at 06:00 Levofloxacin/ Dextrose (Levaquin 500mg/ D5W 100 ml (Pmx)) 100 ml @ 100 mls/hr DAILY IVPB Last administered on 07/19/17 08:22; Admin Dose 100 MLS/HR; Start 07/19/17 at 09:00 Aspirin (Halfprin) 81 mg DAILY PO Last administered on 07/19/17 08:23; Admin Dose 81 MG; Start 07/19/17 at 09:00 Ticagrelor (Brilinta) 90 mg BID PO Last administered on 07/19/17 08:24; Admin Dose 90 MG; Start 07/19/17 at 09:00 Metoprolol Tartrate (Lopressor) 25 mg BID PO Last administered on 07/19/17 08 :23; Admin Dose 25 MG; Start 07/19/17 at 00:30 Atorvastatin Calcium 80 mg 80 mg DAILY@21 PO ; Start 07/19/17 at 21:00 Magnesium Sulfate (Magnesium Sulfate 2 Gm/50 ml) 50 ml @ 25 mls/hr ONCE ONCE IVPB Last administered on 07/19/17 11:57; Admin Dose 25 MLS/HR; Start at 12:00; Stop 07/19/17 at 13:59 Procedures Procedures PROCEDURE: XR Chest. CLINICAL INDICATION: Chest pain TECHNIQUE: Single frontal view of the chest was obtained COMPARISON: None FINDINGS: The tip of the endotracheal tube is approximately 4 cm above the pratibha. There is hypoinflation of the lungs. This along with portable AP technique accentuates the size of the cardiac silhouette. There is appearance of minimal enlargement of the cardiac silhouette. There is appearance of mild diffuse increased interstitial lung densities which could represent interstitial infiltrates or possibly edema. There is no pleural effusion or pneumothorax seen. ECG leads projected over the chest. IMPRESSION: Hypoinflation lungs. There is appearance of minimal enlargement of the cardiac silhouette. There is appearance of mild diffuse increased interstitial lung densities which could represent interstitial infiltrates or possibly edema. RPTAT: HJES .Ronn Araujo MD, MD Date Time Electronically viewed and signed by .Ronn Araujo MD, MD on 07/18/2017 23:25 .S/ CC: GUCCI CLEARY MD PROCEDURE: US Abdomen. CLINICAL INDICATION: elevated LFTs TECHNIQUE: Multiple real-time images were acquired of the patient's abdomen and retroperitoneum utilizing a high resolution transducer. COMPARISON: None FINDINGS: The liver demonstrates increased echogenicity. The liver is normal in size and no focal solid lesions are seen. The portal vein is patent with normal direction of flow. No intrahepatic biliary dilatation is seen. The liver measures 16.3 cm in length. No gallstones are identified within the gallbladder. There is no pericholecystic fluid or gallbladder wall thickening. The common bile duct measures 5 mm in maximal dimension. The visualized portions of the pancreas are unremarkable. The tail of the pancreas is not seen. The pancreas was not well seen due to overlying bowel gas. The spleen is normal in size. The spleen measures 11.5 cm in length. No free fluid is identified. The kidneys are normal in size, and demonstrate normal echogenicity and cortical thickness. The right kidney measures 11.4 cm. The left kidney measures 12.4 cm. There is no evidence of hydronephrosis. There are no kidney stones. The proximal aorta measures 2.3 cm in transverse dimension. IMPRESSION: Mild fatty infiltration of the liver. RPTAT: AA .Hiro Campbell MD, MD Date Time Electronically viewed and signed by .Hiro Campbell MD, MD on 07/19/2017 09: 18 .S/ CC: SAVANAH HOANG MD, BOLATITO M. Jul 19, 2017 14:01
[2017-07-19] MEDS: FENTAnyl (DRIP) 1000 mcg/100mL 100 ML IV SCH (16:30)
[2017-07-19] MEDS ORDERED: ATROPINE 1 MG/10 ML SYRINGE ONE (16:42)
[2017-07-19] MEDS: ATORVASTATIN 80 MG TAB PO SCH (20:50)
[2017-07-19] MEDS ORDERED: ATORVASTATIN 80 MG TAB PO SCH (21:00)
[2017-07-20] VITALS (40 sets, daily range): BP systolic 92–134; BP diastolic 65–92; PULSE 80–106; RESP 12–28
[2017-07-20] MEDS: PROPOFOL 100 ML IV SCH ×3 (02:17→05:31)
[2017-07-20] MEDS: FENTAnyl (DRIP) 1000 mcg/100mL 100 ML IV SCH (02:19)
[2017-07-20 05:21] LABS: BASOPHILS % 0.1 % (0.0-2.0); EOSINOPHILS % 0.3 % (0.0-7.0); HEMATOCRIT 37.7 % (42.0-52.0); HEMOGLOBIN 12.7 g/dl (14.0-18.0); LYMPHOCYTES % 17.2 % (15.0-51.0); MEAN CORPUSCULAR HEMOGLOBIN 31.2 pg (29.0-33.0); MEAN CORPUSCULAR HGB CONC 33.7 g/dl (32.0-37.0); MEAN CORPUSCULAR VOLUME 92.6 fl (82.0-101.0); MEAN PLATELET VOLUME 10.8 fl (7.4-10.4); MONOCYTES % 8.2 % (0.0-11.0); NEUTROPHIL # 8.7 10^3/ul (1.6-7.5); NEUTROPHILS % 73.9 % (39.0-77.0); PLATELET COUNT 186 10^3/UL (140-415); RED BLOOD COUNT 4.07 10^6/ul (4.70-6.10); RED CELL DISTRIBUTION WIDTH 13.4 % (11.5-14.5); WHITE BLOOD COUNT 11.8 10^3/ul (4.8-10.8)
[2017-07-20 06:10] LABS: ALBUMIN 3.4 g/dl (3.3-4.9); ALBUMIN/GLOBULIN RATIO 1.21; BILIRUBIN,INDIRECT 0.4 mg/dl (0-1.1); BILIRUBIN,TOTAL 0.4 mg/dl (0.2-1.3); CREATININE 1.19 mg/dl (0.61-1.24); MAGNESIUM 2.2 mg/dl (1.7-2.5); TOTAL PROTEIN 6.2 g/dl (6.1-8.1)
[2017-07-20] MEDS: LEVOFLOXACIN 500MG/D5W (PMX) 100 ML IVPB SCH (08:23)
[2017-07-20] MEDS: ASPIRIN (EC) 81 MG TAB PO SCH (08:23)
[2017-07-20] MEDS: METOPROLOL 25 MG TAB PO SCH ×2 (08:24→20:24)
[2017-07-20] MEDS: TICAGRELOR 90 MG TABLET PO SCH ×2 (08:26→20:26)
--- NOTE | 2017-07-20 09:31 | CONS ---
Date/Time of Note Date/Time of Note DATE: 07/20/17 TIME: 09:27 Consult Date/Type/Reason Admit Date/Time Jul 18, 2017 at 23:07 Initial Consult Date 07/18/17 Type of Consultation: Pulmonary Ordering Provider: GUCCI CLEARY MD Subjective Patient self extubated this morning. Awake alert oriented comfortable at rest no acute distress. Continues Ventimask oxygen. Objective Vital Signs Date Time Temp Pulse Resp B/P Pulse Ox O2 Delivery O2 Flow Rate FiO2 07/20/17 08:30 98 24 128/89 87 Mask 15.0 07/20/17 07:41 40 07/20/17 07:00 99.0 Intake and Output 07/19/17 07/19/17 07/20/17 15:00 23:00 07:00 Intake Total 590.4 ml 334 ml 334 ml Output Total 1003 ml 1391 ml 314 ml Balance -412.6 ml -1057 ml 20 ml Exam IMPRESSION AND PLAN: 1. Cardiopulmonary arrest. 2. Ventricular fibrillation. 3. Status post stent placement to occluded circumflex. 4. Status post hypoxemic respiratory failure 5. Probable COPD 6. Probable obstructive sleep apnea PLAN: 1. Continue supplemental oxygen. Decrease as tolerated incentive spirometry 2. Encourage out of bed 3. Remove nasal cannula advance diet 4. Statin, aspirin and beta tash as tolerated. 5. Consider low-dose Lasix 5. Outpatient pulmonary function testing and nocturnal polysomnograph Results/Medications Result Diagram: 07/20/17 0453 07/20/17 0453 Results 24 hrs Laboratory Tests Test 07/20/17 04:53 White Blood Count 11.8 H Red Blood Count 4.07 L Hemoglobin 12.7 L Hematocrit 37.7 L Mean Corpuscular Volume 92.6 Mean Corpuscular Hemoglobin 31.2 Mean Corpuscular Hemoglobin Concent 33.7 Red Cell Distribution Width 13.4 Platelet Count 186 Mean Platelet Volume 10.8 H Neutrophils % 73.9 Lymphocytes % 17.2 Monocytes % 8.2 Eosinophils % 0.3 Basophils % 0.1 Nucleated Red Blood Cells % 0.0 Neutrophils # 8.7 H Lymphocytes # 2.0 Monocytes # 1.0 H Eosinophils # 0.0 Basophils # 0.0 Nucleated Red Blood Cells # 0.0 Sodium Level 141 Potassium Level 4.0 Chloride Level 108 Carbon Dioxide Level 25 Anion Gap 12 Blood Urea Nitrogen 21 H Creatinine 1.19 Glucose Level 115 Calcium Level 8.0 L Magnesium Level 2.2 Total Bilirubin 0.4 Direct Bilirubin 0.00 Indirect Bilirubin 0.4 Aspartate Amino Transf (AST/SGOT) 207 #H Alanine Aminotransferase (ALT/SGPT) 298 H Alkaline Phosphatase 54 Total Protein 6.2 Albumin 3.4 Globulin 2.80 Albumin/Globulin Ratio 1.21 Medications Current Medications Ondansetron HCl (Zofran Inj) 4 mg Q6H PRN IV NAUSEA AND/OR VOMITING; Start at 00:00 Nitroglycerin (Nitroglycerin (Sl Tab) 0.4 Mg) 1 tab Q5M PRN SL CHEST PAIN; Start 07/19/17 at 00:00 Acetaminophen (Tylenol Liquid) 650 mg Q6H PRN PO PAIN LEVEL 1-3 OR FEVER; Start 07/19/17 at 00:00 Morphine Sulfate (morphine) 2 mg Q4H PRN IV PAIN LEVEL 7-10 Last administered on 07/19/17 14:54; Admin Dose 2 MG; Start 07/19/17 at 00:00 Lorazepam (Ativan) 1 mg Q2H PRN IV ANXIETY Last administered on 07/19/17 14: 39; Admin Dose 1 MG; Start 07/19/17 at 00:00 Pantoprazole 40 mg 40 mg DAILY@06 IV Last administered on 07/19/17 23:22; Admin Dose 40 MG; Start 07/19/17 at 06:00 Levofloxacin/ Dextrose (Levaquin 500mg/ D5W 100 ml (Pmx)) 100 ml @ 100 mls/hr DAILY IVPB Last administered on 07/20/17 08:23; Admin Dose 100 MLS/HR; Start 07/19/17 at 09:00 Aspirin (Halfprin) 81 mg DAILY PO Last administered on 07/20/17 08:23; Admin Dose 81 MG; Start 07/19/17 at 09:00 Ticagrelor (Brilinta) 90 mg BID PO Last administered on 07/20/17 08:26; Admin Dose 90 MG; Start 07/19/17 at 09:00 Metoprolol Tartrate (Lopressor) 25 mg BID PO Last administered on 07/20/17 08 :24; Admin Dose 25 MG; Start 07/19/17 at 00:30 Atorvastatin Calcium 80 mg 80 mg DAILY@21 PO Last administered on 07/19/17 20 :50; Admin Dose 80 MG; Start 07/19/17 at 21:00 Fentanyl (Sublimaze) 100 ml @ 2.5 mls/hr TITRATE IV Last administered on 07/20 02:19; Admin Dose 10 MLS/HR; Start 07/19/17 at 15:30 JUAN CARLOS TARANGO MD, [facility] Jul 20, 2017 09:31
[2017-07-20 09:39] LABS: AADO2 Arterial 454.5 mmHg (7.0-24.0); Allen Test ACCEPTAB; Arterial Base Excess -1.7 mmol/L (-3.0-3); Arterial COHb 0.3 % (0.0-3.0); Arterial Fraction of Oxyhgb 95.9 % (93.0-99.0); Arterial HCO3 22.6 mmol/L (22.0-26.0); Arterial MetHb 0.1 % (0.0-1.5); Arterial Total Hemglobin 13.6 g/dl (12.0-18.0); MODE MASK - NRB
--- NOTE | 2017-07-20 14:06 | PN ---
Date/Time of Note Date/Time of Note DATE: 07/20/17 TIME: 13:56 Assessment/Plan VTE Prophylaxis VTE Prophylaxis Intervention: SCD's Lines/Catheters IV C[facility]ter Type (from [facility] Saline Lock Urinary Cath still in place: Yes Reason Cath still needed: other (indicate) (still bed bound) Assessment/Plan Assessment/Plan 1. Status post V-fib cardiac arrest, secondary to STEMI: with ROSC s/p shock 3 and Amiodarone. 2. Hypoxic vent dependent respiratory failure: improving 3. Elevated transaminases, likely secondary to shock liver superimposed on chronic fatty liver: improving 4. Acute kidney injury: resolved 5. Metabolic acidosis, secondary to #1: improved 6. Morbid Obesity 7. Possible UTI: cultures negative so far, urine however dirty, treat for 5 days 8, Heavy tobacco use: cessation counseling commenced with , will re-inforce to patient once he's more alert. PLAN: wean down Oxygen as tolerated stay in ICU for now, till O2 requirement is less Diet per pulm Will repeat one dose of lasix. Continue all other ICU supportive care. Subjective 24 Hr Interval Summary Free Text/Dictation Patient self extubated this morning. still requring high flow oxygen however, very lethargic Exam/Review of Systems Vital Signs Vitals Vital Signs Date Time Temp Pulse Resp B/P Pulse Ox O2 Delivery O2 Flow Rate FiO2 07/20/17 13:00 88 19 114/81 94 Mask 15.0 07/20/17 12:00 98.9 07/20/17 07:41 40 Intake and Output 07/19/17 07/19/17 07/20/17 14:59 22:59 06:59 Intake Total 672.0 ml 324 ml 377 ml Output Total 538 ml 1836 ml 373 ml Balance 134.0 ml -1512 ml 4 ml Exam Constitutional: obese, lethargic Head: atraumatic, normocephalic Eyes: PERRL ENMT: oxygen via facemask Respiratory: clear to auscultation Cardiovascular: regular rate and rhythm Gastrointestinal: bowel sounds hypoactive, other (obese), soft Extremities: No edema Results Result Diagram: 07/20/17 0453 07/20/17 0453 Results 24 hrs Laboratory Tests Test 07/20/17 04:53 07/20/17 09:00 White Blood Count 11.8 H Red Blood Count 4.07 L Hemoglobin 12.7 L Hematocrit 37.7 L Mean Corpuscular Volume 92.6 Mean Corpuscular Hemoglobin 31.2 Mean Corpuscular Hemoglobin Concent 33.7 Red Cell Distribution Width 13.4 Platelet Count 186 Mean Platelet Volume 10.8 H Neutrophils % 73.9 Lymphocytes % 17.2 Monocytes % 8.2 Eosinophils % 0.3 Basophils % 0.1 Nucleated Red Blood Cells % 0.0 Neutrophils # 8.7 H Lymphocytes # 2.0 Monocytes # 1.0 H Eosinophils # 0.0 Basophils # 0.0 Nucleated Red Blood Cells # 0.0 Sodium Level 141 Potassium Level 4.0 Chloride Level 108 Carbon Dioxide Level 25 Anion Gap 12 Blood Urea Nitrogen 21 H Creatinine 1.19 Glucose Level 115 Calcium Level 8.0 L Magnesium Level 2.2 Total Bilirubin 0.4 Direct Bilirubin 0.00 Indirect Bilirubin 0.4 Aspartate Amino Transf (AST/SGOT) 207 #H Alanine Aminotransferase (ALT/SGPT) 298 H Alkaline Phosphatase 54 Total Protein 6.2 Albumin 3.4 Globulin 2.80 Albumin/Globulin Ratio 1.21 Blood Gas Specimen Source Blood arterial Arterial Blood Date Drawn 07/20/2017 9:31:27 AM Arterial Blood pH (Temp corrected) 7.402 Arterial Blood pCO2 (Temp correct) 37.2 Arterial Blood pO2 (Temp corrected) 84.1 Arterial Blood HCO3 22.6 Arterial Blood Base Excess -1.7 Arterial Blood Oxygen Saturation 96.3 Joao Test ACCEPTAB Arterial Blood Gas Puncture Site Right Radial Arterial Blood Carboxyhemoglobin 0.3 Arterial Blood Methemoglobin 0.1 Blood Gas A-a O2 Differential 454.5 H Oxyhemoglobin Percent 95.9 Total Hemoglobin 13.6 Blood Gas Temperature 37.0 Blood Gas Modality MASK - NRB FiO2 81.0 Blood Gas Notified Whom Blood Gas Notified Time 07/20/2017 9:38:59 AM Medications Medications Current Medications Ondansetron HCl (Zofran Inj) 4 mg Q6H PRN IV NAUSEA AND/OR VOMITING; Start at 00:00 Nitroglycerin (Nitroglycerin (Sl Tab) 0.4 Mg) 1 tab Q5M PRN SL CHEST PAIN; Start 07/19/17 at 00:00 Acetaminophen (Tylenol Liquid) 650 mg Q6H PRN PO PAIN LEVEL 1-3 OR FEVER; Start 07/19/17 at 00:00 Morphine Sulfate (morphine) 2 mg Q4H PRN IV PAIN LEVEL 7-10 Last administered on 07/19/17 14:54; Admin Dose 2 MG; Start 07/19/17 at 00:00 Lorazepam 1 mg 1 mg Q2H PRN IV ANXIETY Last administered on 07/19/17 14:39; Admin Dose 1 MG; Start 07/19/17 at 00:00 Levofloxacin/ Dextrose (Levaquin 500mg/ D5W 100 ml (Pmx)) 100 ml @ 100 mls/hr DAILY IVPB Last administered on 07/20/17 08:23; Admin Dose 100 MLS/HR; Start 07/19/17 at 09:00 Aspirin (Halfprin) 81 mg DAILY PO Last administered on 07/20/17 08:23; Admin Dose 81 MG; Start 07/19/17 at 09:00 Ticagrelor (Brilinta) 90 mg BID PO Last administered on 07/20/17 08:26; Admin Dose 90 MG; Start 07/19/17 at 09:00 Metoprolol Tartrate (Lopressor) 25 mg BID PO Last administered on 07/20/17 08 :24; Admin Dose 25 MG; Start 07/19/17 at 00:30 Atorvastatin Calcium 80 mg 80 mg DAILY@21 PO Last administered on 07/19/17 20 :50; Admin Dose 80 MG; Start 07/19/17 at 21:00 Fentanyl (Sublimaze) 100 ml @ 2.5 mls/hr TITRATE IV Last administered on 07/20 02:19; Admin Dose 10 MLS/HR; Start 07/19/17 at 15:30 Famotidine (Pepcid Iv) 20 mg Q12 IV ; Start 07/21/17 at 09:00 MARIANN BALDWIN 28, 2017 14:05
--- NOTE | 2017-07-20 14:15 | RADRPT ---
Vent Rate: 89 bpm RR Interval: 0 msec LA Interval: 162 msec QRS Duration: 90 msec QT Interval: 390 msec QTC Interval: 474 msec P-R-T [place]: 54 - -24 - 56 degrees Sinus rhythm with occasional premature ventricular complexes Inferior infarct , age undetermined Abnormal ECG Electronically Signed By: Jimmy Singh [id number]
--- NOTE | 2017-07-20 14:25 | RADRPT ---
Vent Rate: 88 bpm RR Interval: 0 msec GA Interval: 146 msec QRS Duration: 76 msec QT Interval: 368 msec QTC Interval: 445 msec P-R-T [place]: 51 - 31 - 60 degrees Sinus rhythm with occasional premature ventricular complexes Otherwise normal ECG Electronically Signed By: Jimmy Singh [id number]
[2017-07-20] MEDS ORDERED: FUROSEMIDE 20 MG INJ IV ONE (14:30)
--- NOTE | 2017-07-20 17:31 | RADRPT ---
Echocardiogram Report Patient Name: PHYLLIS ARAUZ Gender: Male Date: 1975 Study Date: 20-Jul-2017 First Leveler: Jessica Camacho [facility] Location: [facility] Ref. Physician: HEATHER BERUMEN Quality: Adequate Procedures: Transthoracic echocardiogram with complete 2D, M-Mode, and doppler examination. Indications: Myocardial Infarction. 2D/M Mode Doppler Measurement Value Normal Ranges Measurement Value Normal Ranges LVIDd 2D 4.4 3.5 - 5.6 cm LVOT Peak Vinod 1.0 m/sec LVIDs 2D 2.7 2.1 - 4.1 cm LVOT Peak PG 4.3 mmHg LVPWd 2D 1.1 0.6 - 1.1 cm TR Peak Vinod 2.2 m/sec IVSd 2D 1.1 0.6 - 1.1 cm TR Peak PG 20.0 mmHg AoR Diam 2D 3.0 2.0 - 3.7 cm RVSP 23.0 mmHg EDV 2D 86.4 cm3 ESV 2D 20.8 cm3 LA Dimen 2D 3.3 2.3 - 4.0 cm Findings Left Ventricle: Normal left ventricular systolic function. Normal left ventricular cavity size. Mild concentric left ventricular hypertrophy. Ejection fraction is visually estimated at 60 %. Abnormal Diastolic Function. Right Ventricle: Normal right ventricular size. Normal right ventricular systolic function. Left Atrium: The left atrium is normal in size. Right Atrium: The right atrium is normal in size. Mitral Valve: Normal appearance of the mitral valve. Mild mitral annular calcification. Trace mitral regurgitation. Aortic Valve: No significant aortic stenosis or insufficiency. Aortic cusps appear mildly calcified. Tricuspid Valve: Normal appearance of the tricuspid valve. Estimated peak PA systolic pressure 23 mmHg. There is trace tricuspid regurgitation. Pulmonic Valve: Normal pulmonic valve appearance. Pericardium: Normal pericardium with no significant pericardial effusion. Aorta: Normal aortic root. IVC: Normal size and normal respiratory collapse consistent with normal right atrial pressure. Conclusions Fair to good quality study. Normal left ventricular systolic function without wall motion abnormalities. Trace mitral and tricuspid regurgitation. Normal pulmonary pressures. Electronically Signed By: Heather Berumen 20-Jul-2017 17:30:25 -0800 Patient Name: PHYLLIS ARAUZ Study Date: 20-[id number]
--- NOTE | 2017-07-20 17:37 | PN ---
Date/Time of Note Date/Time of Note DATE: 07/20/17 TIME: 17:32 Assessment/Plan VTE Prophylaxis VTE Prophylaxis Intervention: SCD's Lines/Catheters IV Catheter Type (from [facility]): Saline Lock Urinary Cath still in place: Yes Reason Cath still needed: other (indicate) (critical care) Assessment/Plan Chief Complaint/Hosp Course 42 yo with witnessed vf arrest due to STEMI of lateral wall, underwent successful pci and stent to lcx. Problems: Assessment/Plan VF arrest due to [place] STEMI lateral wall, post pci/stent to LCX right lower quadrant tenderness, r/o vascular complication from cath tobacco abuse dyslipidemia with low hdl and elevated triglycerides Recommendations: Right groin ultrasound to assess for vascular complications ASA, Brilinta, atorvastatin, metoprolol Can change metoprolol to succinate in the am Tobacco cessation, healthy eating, exercise encouraged Needs PT/oob Subjective 24 Hr Interval Summary Free Text/Dictation Patient self-extubated, friends at bedside, patient has no complaints. Exam/Review of Systems Vital Signs Vitals Vital Signs Date Time Temp Pulse Resp B/P Pulse Ox O2 Delivery O2 Flow Rate FiO2 07/20/17 17:00 89 21 109/67 95 Venturi Mask 07/20/17 16:00 15.0 07/20/17 12:00 98.9 07/20/17 07:41 40 Intake and Output 07/19/17 07/19/17 07/20/17 15:00 23:00 07:00 Intake Total 590.4 ml 334 ml 334 ml Output Total 1003 ml 1391 ml 314 ml Balance -412.6 ml -1057 ml 20 ml Exam Constitutional: alert, oriented, well developed Psych: nl mood/affect, no complaints Head: atraumatic, normocephalic Eyes: EOMI, PERRL, nl conjunctiva, nl lids, nl sclera ENMT: nl external ears & nose, nl lips & teeth, nl nasal mucosa & septum Neck: supple, No bruits, No jvd Respiratory: clear to auscultation (anteriorly), normal air movement Cardiovascular: nl pulses, regular rate and rhythm, No murmurs/extra sounds Gastrointestinal: nl liver, spleen, non-tender, soft, tender (right lower quadrant, no masses, no femoral bruit) Musculoskeletal: nl extremities to inspection Extremities: normal pulses Neurological: nl mental status, nl speech Skin: nl turgor, No rash or lesions Results Result Diagram: 07/20/17 0453 07/20/17 0453 Results 24 hrs Laboratory Tests Test 07/20/17 04:53 07/20/17 09:00 White Blood Count 11.8 H Red Blood Count 4.07 L Hemoglobin 12.7 L Hematocrit 37.7 L Mean Corpuscular Volume 92.6 Mean Corpuscular Hemoglobin 31.2 Mean Corpuscular Hemoglobin Concent 33.7 Red Cell Distribution Width 13.4 Platelet Count 186 Mean Platelet Volume 10.8 H Neutrophils % 73.9 Lymphocytes % 17.2 Monocytes % 8.2 Eosinophils % 0.3 Basophils % 0.1 Nucleated Red Blood Cells % 0.0 Neutrophils # 8.7 H Lymphocytes # 2.0 Monocytes # 1.0 H Eosinophils # 0.0 Basophils # 0.0 Nucleated Red Blood Cells # 0.0 Sodium Level 141 Potassium Level 4.0 Chloride Level 108 Carbon Dioxide Level 25 Anion Gap 12 Blood Urea Nitrogen 21 H Creatinine 1.19 Glucose Level 115 Calcium Level 8.0 L Magnesium Level 2.2 Total Bilirubin 0.4 Direct Bilirubin 0.00 Indirect Bilirubin 0.4 Aspartate Amino Transf (AST/SGOT) 207 #H Alanine Aminotransferase (ALT/SGPT) 298 H Alkaline Phosphatase 54 Total Protein 6.2 Albumin 3.4 Globulin 2.80 Albumin/Globulin Ratio 1.21 Blood Gas Specimen Source Blood arterial Arterial Blood Date Drawn 07/20/2017 9:31:27 AM Arterial Blood pH (Temp corrected) 7.402 Arterial Blood pCO2 (Temp correct) 37.2 Arterial Blood pO2 (Temp corrected) 84.1 Arterial Blood HCO3 22.6 Arterial Blood Base Excess -1.7 Arterial Blood Oxygen Saturation 96.3 Joao Test ACCEPTAB Arterial Blood Gas Puncture Site Right Radial Arterial Blood Carboxyhemoglobin 0.3 Arterial Blood Methemoglobin 0.1 Blood Gas A-a O2 Differential 454.5 H Oxyhemoglobin Percent 95.9 Total Hemoglobin 13.6 Blood Gas Temperature 37.0 Blood Gas Modality MASK - NRB FiO2 81.0 Blood Gas Notified Whom SM Blood Gas Notified Time 07/20/2017 9:38:59 AM Imaging Free Text/Dictation echo -normal ef, no wall motion abnormalities, normal pa pressures Medications Medications Current Medications Ondansetron HCl (Zofran Inj) 4 mg Q6H PRN IV NAUSEA AND/OR VOMITING; Start at 00:00 Nitroglycerin (Nitroglycerin (Sl Tab) 0.4 Mg) 1 tab Q5M PRN SL CHEST PAIN; Start 07/19/17 at 00:00 Acetaminophen (Tylenol Liquid) 650 mg Q6H PRN PO PAIN LEVEL 1-3 OR FEVER; Start 07/19/17 at 00:00 Morphine Sulfate (morphine) 2 mg Q4H PRN IV PAIN LEVEL 7-10 Last administered on 07/19/17 14:54; Admin Dose 2 MG; Start 07/19/17 at 00:00 Lorazepam 1 mg 1 mg Q2H PRN IV ANXIETY Last administered on 07/19/17 14:39; Admin Dose 1 MG; Start 07/19/17 at 00:00 Levofloxacin/ Dextrose (Levaquin 500mg/ D5W 100 ml (Pmx)) 100 ml @ 100 mls/hr DAILY IVPB Last administered on 07/20/17 08:23; Admin Dose 100 MLS/HR; Start 07/19/17 at 09:00; Stop 07/24/17 at 08:59 Aspirin (Halfprin) 81 mg DAILY PO Last administered on 07/20/17 08:23; Admin Dose 81 MG; Start 07/19/17 at 09:00 Ticagrelor (Brilinta) 90 mg BID PO Last administered on 07/20/17 08:26; Admin Dose 90 MG; Start 07/19/17 at 09:00 Metoprolol Tartrate (Lopressor) 25 mg BID PO Last administered on 07/20/17 08 :24; Admin Dose 25 MG; Start 07/19/17 at 00:30 Atorvastatin Calcium 80 mg 80 mg DAILY@21 PO Last administered on 07/19/17 20 :50; Admin Dose 80 MG; Start 07/19/17 at 21:00 Fentanyl (Sublimaze) 100 ml @ 2.5 mls/hr TITRATE IV Last administered on 07/20 02:19; Admin Dose 10 MLS/HR; Start 07/19/17 at 15:30 Famotidine (Pepcid Iv) 20 mg Q12 IV ; Start 07/21/17 at 09:00 [place] BERUMEN Jul 20, 2017 17:37
[2017-07-20] MEDS: ATORVASTATIN 80 MG TAB PO SCH (20:25)
[2017-07-21] VITALS (21 sets, daily range): BP systolic 111–134; BP diastolic 65–96; PULSE 78–95; RESP 16–31
[2017-07-21 05:43] LABS: BASOPHILS % 0.2 % (0.0-2.0); EOSINOPHILS # 0.1 10^3/ul (0.0-0.5); EOSINOPHILS % 0.5 % (0.0-7.0); HEMATOCRIT 35.1 % (42.0-52.0); HEMOGLOBIN 12.1 g/dl (14.0-18.0); LYMPHOCYTES # 1.8 10^3/ul (0.8-2.9); LYMPHOCYTES % 18.5 % (15.0-51.0); MEAN CORPUSCULAR HEMOGLOBIN 30.9 pg (29.0-33.0); MEAN CORPUSCULAR HGB CONC 34.5 g/dl (32.0-37.0); MEAN CORPUSCULAR VOLUME 89.5 fl (82.0-101.0); MEAN PLATELET VOLUME 10.7 fl (7.4-10.4); MONOCYTE # 0.6 10^3/ul (0.3-0.9); MONOCYTES % 6.7 % (0.0-11.0); NEUTROPHIL # 7.1 10^3/ul (1.6-7.5); NEUTROPHILS % 73.7 % (39.0-77.0); PLATELET COUNT 160 10^3/UL (140-415); RED BLOOD COUNT 3.92 10^6/ul (4.70-6.10); RED CELL DISTRIBUTION WIDTH 12.6 % (11.5-14.5); WHITE BLOOD COUNT 9.6 10^3/ul (4.8-10.8)
--- NOTE | 2017-07-21 05:47 | RADRPT ---
PROCEDURE: Right groin ultrasound CLINICAL INDICATION: Right groin pain, evaluate for pseudoaneurysm TECHNIQUE: Sonographic evaluation of the right groin was performed. De Leon scale and color Doppler imaging was obtained. Images were reviewed on a high-resolution PACS workstation. COMPARISON: None available FINDINGS: The normal fascial planes and underlying musculature is preserved. Subcutaneous tissues of the righ t groin are unremarkable. The vasculature as visualized is normal. No mass or fluid collection or other abnormality is seen. The right inguinal and femoral vessels demonstrate normal Doppler wavefor ms. IMPRESSION: Unremarkable ultrasound of the right groin. No sonographic evidence of pseudoaneurysm or AV fistula. RPTAT: HH .Olga Strauss MD, MD Date Time Electronically viewed and signed by .Olga Strauss MD, on 07/21/2017 05:46 .G/
[2017-07-21 06:22] LABS: CALCIUM 8.1 mg/dl (8.4-10.2); CREATININE 0.83 mg/dl (0.61-1.24); MAGNESIUM 1.9 mg/dl (1.7-2.5); PHOSPHORUS 2.6 mg/dl (2.5-4.9); POTASSIUM 3.5 mmol/L (3.5-5.1)
--- NOTE | 2017-07-21 06:49 | PN ---
Date/Time of Note Date/Time of Note DATE: 07/21/17 TIME: 06:43 Assessment/Plan VTE Prophylaxis VTE Prophylaxis Intervention: SCD's Lines/Catheters IV Catheter Type (from [facility]): Saline Lock Urinary Cath still in place: Yes Reason Cath still needed: other (indicate) (recently extubated) Assessment/Plan Chief Complaint/Hosp Course 42 yo with witnessed vf arrest due to STEMI of lateral wall, underwent successful pci and stent to lcx. Problems: Assessment/Plan VF arrest due to [place] STEMI lateral wall post pci/stent to LCX chest pain this am, most likely etiology is from CPR tobacco abuse dyslipidemia right lower quadrant pain of unclear etiology, not due to vascular complication from cath Plan: EKG this am Continue asa, Brilinta, atorvastation Change metoprolol tartrate to succinate preparation Reiterated to pt importance of healthy lifestyle -- quit smoking, exercise, good food choices Out of bed, ambulate May transfer out of ICU Subjective 24 Hr Interval Summary Free Text/Dictation This morning, pt c/o chest pain. [place] Islander american sign language interpreter present. Pain is squeezing and intermittent, has been going on for an hour, pt rates it 01/30 Exam/Review of Systems Vital Signs Vitals Vital Signs Date Time Temp Pulse Resp B/P Pulse Ox O2 Delivery O2 Flow Rate FiO2 07/21/17 06:00 89 20 117/72 92 Nasal Cannula 2.0 07/21/17 04:00 98.4 07/20/17 07:41 40 Intake and Output 07/20/17 07/20/17 07/21/17 15:00 23:00 07:00 Intake Total 300 ml 180 ml 360 ml Output Total 295 ml 1608 ml 387 ml Balance 5 ml -1428 ml -27 ml Exam Constitutional: alert, oriented, well developed Psych: nl mood/affect, no complaints Head: atraumatic, normocephalic Eyes: EOMI, PERRL, nl conjunctiva, nl lids, nl sclera ENMT: nl external ears & nose, nl lips & teeth, nl nasal mucosa & septum Neck: supple, No bruits, No jvd Respiratory: clear to auscultation, normal air movement Cardiovascular: regular rate and rhythm, No murmurs/extra sounds Gastrointestinal: nl liver, spleen, soft, tender (right lower quadrant tender) Musculoskeletal: nl extremities to inspection, nl gait and stance Extremities: No edema Neurological: nl mental status, nl speech Skin: nl turgor, No rash or lesions Results Result Diagram: 07/21/17 0449 07/21/17 0449 Results 24 hrs Laboratory Tests Test 07/20/17 09:00 07/21/17 04:49 Blood Gas Specimen Source Blood arterial Arterial Blood Date Drawn 07/20/2017 9:31:27 AM Arterial Blood pH (Temp corrected) 7.402 Arterial Blood pCO2 (Temp correct) 37.2 Arterial Blood pO2 (Temp corrected) 84.1 Arterial Blood HCO3 22.6 Arterial Blood Base Excess -1.7 Arterial Blood Oxygen Saturation 96.3 Joao Test ACCEPTAB Arterial Blood Gas Puncture Site Right Radial Arterial Blood Carboxyhemoglobin 0.3 Arterial Blood Methemoglobin 0.1 Blood Gas A-a O2 Differential 454.5 H Oxyhemoglobin Percent 95.9 Total Hemoglobin 13.6 Blood Gas Temperature 37.0 Blood Gas Modality MASK - NRB FiO2 81.0 Blood Gas Notified Whom SM Blood Gas Notified Time 07/20/2017 9:38:59 AM White Blood Count 9.6 Red Blood Count 3.92 L Hemoglobin 12.1 L Hematocrit 35.1 L Mean Corpuscular Volume 89.5 Mean Corpuscular Hemoglobin 30.9 Mean Corpuscular Hemoglobin Concent 34.5 Red Cell Distribution Width 12.6 Platelet Count 160 Mean Platelet Volume 10.7 H Neutrophils % 73.7 Lymphocytes % 18.5 Monocytes % 6.7 Eosinophils % 0.5 Basophils % 0.2 Nucleated Red Blood Cells % 0.0 Neutrophils # 7.1 Lymphocytes # 1.8 Monocytes # 0.6 Eosinophils # 0.1 Basophils # 0.0 Nucleated Red Blood Cells # 0.0 Sodium Level 137 Potassium Level 3.5 Chloride Level 103 Carbon Dioxide Level 26 Anion Gap 12 Blood Urea Nitrogen 15 Creatinine 0.83 Glucose Level 110 Calcium Level 8.1 L Phosphorus Level 2.6 Magnesium Level 1.9 Imaging Free Text/Dictation Vascular ultrasound reports no vascular complications in right groin Medications Medications Current Medications Ondansetron HCl (Zofran Inj) 4 mg Q6H PRN IV NAUSEA AND/OR VOMITING; Start at 00:00 Nitroglycerin (Nitroglycerin (Sl Tab) 0.4 Mg) 1 tab Q5M PRN SL CHEST PAIN; Start 07/19/17 at 00:00 Acetaminophen (Tylenol Liquid) 650 mg Q6H PRN PO PAIN LEVEL 1-3 OR FEVER; Start 07/19/17 at 00:00 Morphine Sulfate (morphine) 2 mg Q4H PRN IV PAIN LEVEL 7-10 Last administered on 07/19/17 14:54; Admin Dose 2 MG; Start 07/19/17 at 00:00 Lorazepam 1 mg 1 mg Q2H PRN IV ANXIETY Last administered on 07/19/17 14:39; Admin Dose 1 MG; Start 07/19/17 at 00:00 Levofloxacin/ Dextrose (Levaquin 500mg/ D5W 100 ml (Pmx)) 100 ml @ 100 mls/hr DAILY IVPB Last administered on 07/20/17 08:23; Admin Dose 100 MLS/HR; Start 07/19/17 at 09:00; Stop 07/24/17 at 08:59 Aspirin (Halfprin) 81 mg DAILY PO Last administered on 07/20/17 08:23; Admin Dose 81 MG; Start 07/19/17 at 09:00 Ticagrelor (Brilinta) 90 mg BID PO Last administered on 07/20/17 20:26; Admin Dose 90 MG; Start 07/19/17 at 09:00 Metoprolol Tartrate (Lopressor) 25 mg BID PO Last administered on 07/20/17 20 :24; Admin Dose 25 MG; Start 07/19/17 at 00:30 Atorvastatin Calcium 80 mg 80 mg DAILY@21 PO Last administered on 07/20/17 20 :25; Admin Dose 80 MG; Start 07/19/17 at 21:00 Fentanyl (Sublimaze) 100 ml @ 2.5 mls/hr TITRATE IV Last administered on 07/20 02:19; Admin Dose 10 MLS/HR; Start 07/19/17 at 15:30 Famotidine (Pepcid Iv) 20 mg Q12 IV ; Start 07/21/17 at 09:00 [place] BERUM[place] Jul 21, 2017 06:49
--- NOTE | 2017-07-21 07:57 | RADRPT ---
PROCEDURE: Chest 1 views. CLINICAL INDICATION: Shortness of breath. TECHNIQUE: Single view of the chest was obtained. COMPARISON: DR FENG 07/18/2017 FINDINGS: The heart is large. The lungs are hypoinflated. Atelectasis versus mild infiltrates in the perihilar right lower lobe are identified. Patchy atelectasis versus mild infiltrates are seen in the retroca rdiac left lower lobe. Osseous structures are intact. IMPRESSION: Cardiomegaly . Hypoinflated lungs. Atelectasis versus mild infiltrates in the perihilar right lower lobe and retrocardiac left lower lo be. RPTAT: AA .Edison Rosales MD, MD Date Time Electronically viewed and signed by .Edison Rosales MD, MD on 07/21/2017 07:57 .P/
[2017-07-21] MEDS: FAMOTIDINE 20 MG INJ IV SCH ×2 (08:33→20:30)
[2017-07-21] MEDS: ASPIRIN (EC) 81 MG TAB PO SCH (08:33)
[2017-07-21] MEDS: TICAGRELOR 90 MG TABLET PO SCH ×2 (08:34→20:33)
[2017-07-21] MEDS: METOPROLOL (XL) 100 MG TAB PO SCH (08:35)
[2017-07-21] MEDS: LEVOFLOXACIN 500MG/D5W (PMX) 100 ML IVPB SCH (08:36)
--- NOTE | 2017-07-21 12:23 | CONS ---
Date/Time of Note Date/Time of Note DATE: 07/21/17 TIME: 12:21 Consult Date/Type/Reason Admit Date/Time Jul 18, 2017 at 23:07 Initial Consult Date 07/18/17 Type of Consultation: Pulmonary Ordering Provider: GUCCI CLEARY MD Subjective Comfortable this morning. Awake alert and oriented. Objective Vital Signs Date Time Temp Pulse Resp B/P Pulse Ox O2 Delivery O2 Flow Rate FiO2 07/21/17 12:00 81 21 111/86 96 Room Air 07/21/17 09:00 2.0 07/21/17 07:00 98.8 07/21/17 04:00 28 Intake and Output 07/20/17 07/20/17 07/21/17 15:00 23:00 07:00 Intake Total 300 ml 180 ml 360 ml Output Total 295 ml 1608 ml 498 ml Balance 5 ml -1428 ml -138 ml Exam GENERAL: Moderately obese [place] gentleman comfortable at rest no acute distress VITAL SIGNS: per chart NECK: Supple. No JVD or lymphadenopathy. CARDIAC EXAM: S1, S2. No added sounds or murmurs. CHEST: clear bilaterally, No added sounds, rales or wheezes ABDOMEN: Soft, nontender. No guarding or rebound. EXTREMITIES: No cyanosis, clubbing or edema. NEUROLOGIC: Generalized weakness. No focal deficits. Results/Medications Result Diagram: 07/21/1744807/21/17448 Results 24 hrs Laboratory Tests Test 07/21/17 04:49 White Blood Count 9.6 Red Blood Count 3.92 L Hemoglobin 12.1 L Hematocrit 35.1 L Mean Corpuscular Volume 89.5 Mean Corpuscular Hemoglobin 30.9 Mean Corpuscular Hemoglobin Concent 34.5 Red Cell Distribution Width 12.6 Platelet Count 160 Mean Platelet Volume 10.7 H Neutrophils % 73.7 Lymphocytes % 18.5 Monocytes % 6.7 Eosinophils % 0.5 Basophils % 0.2 Nucleated Red Blood Cells % 0.0 Neutrophils # 7.1 Lymphocytes # 1.8 Monocytes # 0.6 Eosinophils # 0.1 Basophils # 0.0 Nucleated Red Blood Cells # 0.0 Sodium Level 137 Potassium Level 3.5 Chloride Level 103 Carbon Dioxide Level 26 Anion Gap 12 Blood Urea Nitrogen 15 Creatinine 0.83 Glucose Level 110 Calcium Level 8.1 L Phosphorus Level 2.6 Magnesium Level 1.9 Medications Current Medications Ondansetron HCl (Zofran Inj) 4 mg Q6H PRN IV NAUSEA AND/OR VOMITING; Start at 00:00 Nitroglycerin (Nitroglycerin (Sl Tab) 0.4 Mg) 1 tab Q5M PRN SL CHEST PAIN; Start 07/19/17 at 00:00 Acetaminophen (Tylenol Liquid) 650 mg Q6H PRN PO PAIN LEVEL 1-3 OR FEVER; Start 07/19/17 at 00:00 Morphine Sulfate (morphine) 2 mg Q4H PRN IV PAIN LEVEL 7-10 Last administered on 07/19/17 14:54; Admin Dose 2 MG; Start 07/19/17 at 00:00 Lorazepam 1 mg 1 mg Q2H PRN IV ANXIETY Last administered on 07/19/17 14:39; Admin Dose 1 MG; Start 07/19/17 at 00:00 Levofloxacin/ Dextrose (Levaquin 500mg/ D5W 100 ml (Pmx)) 100 ml @ 100 mls/hr DAILY IVPB Last administered on 07/21/17 08:36; Admin Dose 100 MLS/HR; Start 07/19/17 at 09:00; Stop 07/24/17 at 08:59 Aspirin (Halfprin) 81 mg DAILY PO Last administered on 07/21/17 08:33; Admin Dose 81 MG; Start 07/19/17 at 09:00 Ticagrelor (Brilinta) 90 mg BID PO Last administered on 07/21/17 08:34; Admin Dose 90 MG; Start 07/19/17 at 09:00 Atorvastatin Calcium 80 mg 80 mg DAILY@21 PO Last administered on 07/20/17 20 :25; Admin Dose 80 MG; Start 07/19/17 at 21:00 Fentanyl (Sublimaze) 100 ml @ 2.5 mls/hr TITRATE IV Last administered on 07/20 02:19; Admin Dose 10 MLS/HR; Start 07/19/17 at 15:30 Famotidine (Pepcid Iv) 20 mg Q12 IV Last administered on 07/21/17 08:33; Admin Dose 20 MG; Start 07/21/17 at 09:00 Metoprolol Succinate (Toprol Xl) 100 mg DAILY PO Last administered on 08:35; Admin Dose 100 MG; Start 07/21/17 at 09:00 Assessment/Plan Chief Complaint/Hosp Course IMPRESSION AND PLAN: 1. Cardiopulmonary arrest. 2. Ventricular fibrillation. 3. Status post stent placement to occluded circumflex. 4. Status post hypoxemic respiratory failure 5. Probable COPD 6. Probable obstructive sleep apnea PLAN: 1. Decrease O2 as tolerated 2. Encourage out of bed 3. PT eval 4. Statin, aspirin and beta tash as tolerated. 5. DC Douglas catheter 5. Outpatient pulmonary function testing and nocturnal polysomnograph Transfer to telemetry okay from pulmonary standpoint Problems: JUAN CARLOS TARANGO MD, [facility] Jul 21, 2017 12:23
--- NOTE | 2017-07-21 17:44 | PN ---
Date/Time of Note Date/Time of Note DATE: 07/21/17 TIME: 17:41 Assessment/Plan VTE Prophylaxis VTE Prophylaxis Intervention: SCD's Lines/Catheters IV [facility]ter [facility]from [facility] DC'd Urinary Cath still in place: No Assessment/Plan Assessment/Plan 1. Status post V-fib cardiac arrest, secondary to STEMI: with ROSC s/p shock 3 and Amiodarone. 2. Hypoxic vent dependent respiratory failure: improving 3. Elevated transaminases, likely secondary to shock liver superimposed on chronic fatty liver: improving 4. Acute kidney injury: resolved 5. Metabolic acidosis, secondary to #1: improved 6. Morbid Obesity 7. Possible UTI: cultures negative so far, urine however dirty, treat for 5 days 8, Heavy tobacco use: cessation counseling commenced with , will re-inforce to patient once he's more alert. PLAN: agree with tele downgrade when bed available Continue tobacco cessation counselling Continue all other ICU supportive care. Possible d/c tomorrow if cleared by consultants with no complications,. Subjective 24 Hr Interval Summary Free Text/Dictation Patient seen and examined. more alert happy, family at bedside Exam/Review of Systems Vital Signs Vitals Vital Signs Date Time Temp Pulse Resp B/P Pulse Ox O2 Delivery O2 Flow Rate FiO2 07/21/17 17:00 88 19 134/90 96 Room Air 07/21/17 09:00 2.0 07/21/17 07:00 98.8 07/21/17 04:00 28 Intake and Output 07/20/17 07/20/17 07/21/17 14:59 22:59 06:59 Intake Total 200 ml 280 ml 360 ml Output Total 189 ml 1700 ml 401 ml Balance 11 ml -1420 ml -41 ml Exam Constitutional: alert, obese, oriented Psych: nl mood/affect Head: normocephalic Eyes: PERRL Neck: supple Respiratory: clear to auscultation, diminished breath sounds, No wheezing Cardiovascular: regular rate and rhythm, No murmurs/extra sounds Gastrointestinal: bowel sounds, non-tender, soft Extremities: No edema Neurological: lethargic (less) Results Result Diagram: 07/21/17 0449 07/21/17 0449 Results 24 hrs Laboratory Tests Test 07/21/17 04:49 White Blood Count 9.6 Red Blood Count 3.92 L Hemoglobin 12.1 L Hematocrit 35.1 L Mean Corpuscular Volume 89.5 Mean Corpuscular Hemoglobin 30.9 Mean Corpuscular Hemoglobin Concent 34.5 Red Cell Distribution Width 12.6 Platelet Count 160 Mean Platelet Volume 10.7 H Neutrophils % 73.7 Lymphocytes % 18.5 Monocytes % 6.7 Eosinophils % 0.5 Basophils % 0.2 Nucleated Red Blood Cells % 0.0 Neutrophils # 7.1 Lymphocytes # 1.8 Monocytes # 0.6 Eosinophils # 0.1 Basophils # 0.0 Nucleated Red Blood Cells # 0.0 Sodium Level 137 Potassium Level 3.5 Chloride Level 103 Carbon Dioxide Level 26 Anion Gap 12 Blood Urea Nitrogen 15 Creatinine 0.83 Glucose Level 110 Calcium Level 8.1 L Phosphorus Level 2.6 Magnesium Level 1.9 Medications Medications Current Medications Ondansetron HCl (Zofran Inj) 4 mg Q6H PRN IV NAUSEA AND/OR VOMITING; Start at 00:00 Nitroglycerin (Nitroglycerin (Sl Tab) 0.4 Mg) 1 tab Q5M PRN SL CHEST PAIN; Start 07/19/17 at 00:00 Acetaminophen (Tylenol Liquid) 650 mg Q6H PRN PO PAIN LEVEL 1-3 OR FEVER; Start 07/19/17 at 00:00 Morphine Sulfate (morphine) 2 mg Q4H PRN IV PAIN LEVEL 7-10 Last administered on 07/19/17 14:54; Admin Dose 2 MG; Start 07/19/17 at 00:00 Lorazepam 1 mg 1 mg Q2H PRN IV ANXIETY Last administered on 07/19/17 14:39; Admin Dose 1 MG; Start 07/19/17 at 00:00 Levofloxacin/ Dextrose (Levaquin 500mg/ D5W 100 ml (Pmx)) 100 ml @ 100 mls/hr DAILY IVPB Last administered on 07/21/17 08:36; Admin Dose 100 MLS/HR; Start 07/19/17 at 09:00; Stop 07/24/17 at 08:59 Aspirin (Halfprin) 81 mg DAILY PO Last administered on 07/21/17 08:33; Admin Dose 81 MG; Start 07/19/17 at 09:00 Ticagrelor (Brilinta) 90 mg BID PO Last administered on 07/21/17 08:34; Admin Dose 90 MG; Start 07/19/17 at 09:00 Atorvastatin Calcium (Lipitor) 80 mg DAILY@21 PO Last administered on 20:25; Admin Dose 80 MG; Start 07/19/17 at 21:00 Famotidine (Pepcid Iv) 20 mg Q12 IV Last administered on 07/21/17 08:33; Admin Dose 20 MG; Start 07/21/17 at 09:00 Metoprolol Succinate (Toprol Xl) 100 mg DAILY PO Last administered on 08:35; Admin Dose 100 MG; Start 07/21/17 at 09:00 MARIANN BALDWIN Jul 21, 2017 17:44
[2017-07-21] MEDS: ATORVASTATIN 80 MG TAB PO SCH (20:31)
[2017-07-22] VITALS (8 sets, daily range): BP systolic 106–123; BP diastolic 71–80; PULSE 71–84; RESP 16–19
[2017-07-22] MEDS: LEVOFLOXACIN 500MG/D5W (PMX) 100 ML IVPB SCH (08:20)
[2017-07-22] MEDS: ASPIRIN (EC) 81 MG TAB PO SCH (08:20)
[2017-07-22] MEDS: FAMOTIDINE 20 MG INJ IV SCH (08:20)
[2017-07-22] MEDS: METOPROLOL (XL) 100 MG TAB PO SCH (08:21)
[2017-07-22] MEDS: TICAGRELOR 90 MG TABLET PO SCH (08:24)
[2017-07-22] MEDS ORDERED: ASPI-664 PO (12:28)
[2017-07-22] MEDS ORDERED: METO-336 PO (12:28)
[2017-07-22] MEDS ORDERED: ATOR80TA75 PO (12:28)
[2017-07-22] MEDS ORDERED: TICA90TA PO (12:28)
[2017-07-22] MEDS ORDERED: NIT4 SL (12:28)
--- NOTE | 2017-07-22 15:12 | RADRPT ---
Vent Rate: 90 bpm RR Interval: 0 msec DC Interval: 150 msec QRS Duration: 90 msec QT Interval: 358 msec QTC Interval: 437 msec P-R-T [place]: 47 - 23 - 35 degrees Sinus rhythm with occasional premature ventricular complexes Otherwise normal ECG Electronically Signed By: Jimmy Singh [id number]
--- NOTE | 2017-07-22 16:32 | DS ---
Date/Time of Note Date/Time of Note DATE: 07/22/17 TIME: 16:31 Discharge Summary Admission/Discharge Info Admit Date/Time Jul 18, 2017 at 23:07 Discharge Date/Time 07/22/17 Discharge Diagnosis 1. Status post V-fib cardiac arrest, secondary to STEMI: with ROSC s/p shock 3 and Amiodarone. 2. Hypoxic vent dependent respiratory failure: resolved 3. Elevated transaminases, likely secondary to shock liver superimposed on chronic fatty liver: improving 4. Acute kidney injury: resolved 5. Metabolic acidosis, secondary to #1: resolved 6. Morbid Obesity 7. Possible UTI s/p treatment 8, Heavy tobacco use: s/p cessation counseling . Consults Heather Hernandez: Cardiology Luis Gutierrez: Pulmonary . Procedures Procedure Date: Jul 19, 2017 Preoperative Diagnosis STEMI lateral wall Postoperative Diagnosis STEMI lateral wall, completely occluded LCX Operation/Procedure Performed coronary angiogram, left heart catheterization, percutaneous coronary intervention of left circumflex Surgeon: David . Hospital Course This is a 42-year-old male with a history of hypertension, diabetes and smoking history who was brought to the ER after having had a cardiac arrest. Patient was in V. fib cardiac arrest and was shocked 3. When he arrived to the ER, a code STEMI was activated and patient was emergently taken to the [facility] and is now status post PCI with stents to the left circumflex. He was intubated d/ t being unresponsive and was observed and managed in ICU for about 2 days after which he self extubated and has done fairly well since. Patient is a chronic smoker and has been counselled extensively on the need for medication compliance and tobacco cessation. he has verbalized understanding and willingness to comply. He will be discharged today in stable condition once cleared by cardiology. He is anxious to go home. . Home Meds Active Scripts Aspirin* (Aspirin* EC) 81 Mg Tablet.dr, 81 MG PO DAILY for 30 Days, #30 TAB 2 Refills Prov:MARIANN BALDWIN 07/22/17 Nitroglycerin* (Nitrostat*) 0.4 Mg Tab.subl, 1 TAB SL Q5M Y for CHEST PAIN, #15 TAB 0 Refills Prov:MARIANN BALDWIN. 07/22/17 Metoprolol Succinate* (Toprol XL*) 100 Mg Tab.sr.24h, 100 MG PO DAILY for 30 Days, #30 TAB 2 Refills Prov:MARIANN BALDWIN. 07/22/17 Atorvastatin* (Atorvastatin*) 80 Mg Tablet, 80 MG PO DAILY@21 for 30 Days, #30 TAB 2 Refills Prov:MARIANN BALDWIN. 07/22/17 Ticagrelor* (Brilinta*) 90 Mg Tablet, 90 MG PO BID for 30 Days, #60 TAB 2 Refills Prov:MARIANN BALDWIN. 07/22/17 Follow-up Plan Followup with your primary doctor within the next 1-2 weeks. If you don't have one please let someone know, we can give you resources that may help you pick one. You may call Dr Ramone Rodriguez's office. he's accepting new patients Name, Degree: Ramone Rodriguez MD Specialty: Internal Medicine Comments: Office Address: [address] [place], [place] [id number] Office Office You may also call your insurance company to assign one to you. Review your medication list with your nurse before leaving and if you need new prescriptions please let your nurse know. I may have made changes to your home medications or given you new prescriptions, please let your primary doctor know as well. Stay compliant with your medications and report any side effects to your PCP or pharmacist. Return to the ER if you have any concerns and cannot reach your doctors or call your insurance company, they usually have a nurse that can help you. Please stop smoking. If you have already stopped, Good for you!!!. It is however an ongoing process. If you need help or resources, please let someone know before you leave. We are here to help you. It has been associated with a lot of disease processes and is not favourable for healing. Primary Care Provider Daisah Durham Time spent on discharge: > 30 minutes PRINCESS BALDWINJADA Lopez Jul 22, 2017 16:32
[2017-07-23] MEDS ORDERED: PANTOPRAZOLE (EC) 40 MG TAB PO SCH (06:00)
== END 2017-07-22 17:38 | disposition home or self-care (01) | DRG 246 ==
LOC: E/R 22:18 → ICU 22:51 → TEL 07-21 18:46
PROVIDERS: ADMIT Internal Medicine; ATTEND Internal Medicine
PROC: 5A1945Z Respiratory Ventilation, 24-96 Consecutive Hours (ICD-10-PCS; 2017-07-18)
PROC: 0BH17EZ Insertion of Endotracheal Airway into Trachea, Via Natural or Artificial Opening (ICD-10-PCS; 2017-07-18)
PROC: 4A023N7 Measurement of Cardiac Sampling and Pressure, Left Heart, Percutaneous Approach (ICD-10-PCS; 2017-07-19)
PROC: B2111ZZ Fluoroscopy of Multiple Coronary Arteries using Low Osmolar Contrast (ICD-10-PCS; 2017-07-19)
PROC: 027034Z Dilation of Coronary Artery, One Artery with Drug-eluting Intraluminal Device, Percutaneous Approach (ICD-10-PCS; principal; 2017-07-19 06:00)
DX: I21.29 ST elevation (STEMI) myocardial infarction involving other sites (principal); J96.01 Acute respiratory failure with hypoxia; I46.9 Cardiac arrest, cause unspecified; K72.00 Acute and subacute hepatic failure without coma; N17.9 Acute kidney failure, unspecified; E87.2 Acidosis; N39.0 Urinary tract infection, site not specified; I25.10 Atherosclerotic heart disease of native coronary artery without angina pectoris; Z72.0 Tobacco use; E66.01 Morbid (severe) obesity due to excess calories; Z68.39 Body mass index [BMI] 39.0-39.9, adult; G47.33 Obstructive sleep apnea (adult) (pediatric); J44.9 Chronic obstructive pulmonary disease, unspecified; E78.5 Hyperlipidemia, unspecified
CPT/HCPCS: 36415; 36600; 71010; 76700; 80048; 80053; 80061; 80307; 81001; 82550; 82553; 82803; 83036; 83690; 83735; 83880; 84100; 84132; 84443; 84484; 85025; 85610; 87081; 87086; 93005; 93306; 93458; 93926; 94002; 94003; 94640; 94770; 96374; 96375; 97116; 97162; 97530; J1940; C1725; C1874; C1887; C1894; C9113; C9606; J0461; J0583; J1265; J1327; J1644; J1956; J2060; J2250; J2270; J2405; J3010; J3475; J7030; Q9967